=== PATIENT | female | born 1955 | race Caucasian/White ===

== ENCOUNTER 2019-10-19 19:52 | Inpatient (IN) ==
[2019-10-19 21:12] LABS: Appearance Urine Cloudy (Clear); Bacteria Urine Automated 4+ (Negative); Bilirubin Urine Negative (Negative); Blood Urine Negative (Negative); Color Urine Yellow; Glucose Urine UA Negative (Negative); Ketones Urine Negative (Negative); Leukocyte Esterase Urine Trace (Negative); Nitrite Urine Positive (Negative); Protein Urine Negative (Negative); RBC Urine Automated 0-4 /hpf (0-4); Specific Gravity Urine 1.012 (1.000-1.030); Urobilinogen Urine Negative (Negative); pH Urine 5.5 (4.5-7.5)
[2019-10-19 21:30] LABS: Basophils # (auto) 0.11 K/uL (0-0.2); Basophils % (auto) 2.5 %; Eosinophils # (auto) 0.24 K/uL (0-0.5); Eosinophils % (auto) 5.4 %; Hematocrit (blood only) 38.9 % (37-47); Hemoglobin 13.7 g/dL (12.0-16.0); Immature Granulocytes # (auto) 0.02 K/uL (0.00-0.02); Immature Granulocytes % (auto) 0.5 %; Lymphocytes # (auto) 1.45 K/uL (1.2-3.4); Lymphocytes % (auto) 32.7 %; Mean Corpuscular Hemoglobin 38.1 pg (25-34); Mean Corpuscular Hgb Conc 35.2 g/dL (32-36); Mean Corpuscular Volume 108.1 fL (80-100); Mean Platelet Volume 9.6 fL (7.4-10.4); Monocytes % (auto) 6.8 %; Neutrophils # (auto) 2.31 K/uL (1.4-6.5); Neutrophils % (auto) 52.1 %; Platelet Count 250 K/uL (130-400); RDW Coefficient of Variation 13.6 % (11.5-14.5); RDW Standard Deviation 54.2 fL (36.4-46.3); White Blood Count 4.43 K/uL (4.8-10.8)
[2019-10-19 21:37] LABS: Amphetamines+Metham, Urine Neg (Neg); Barbiturates, Urine Neg (Neg); Benzodiazepine, Urine Neg (Neg); Cocaine, Urine Neg (Neg); MDMA (Ecstacy), Urine Neg (Neg); Methadone, Urine Neg (Neg); Opiate, Urine Neg (Neg); Phencyclidine, Urine Neg (Neg)
[2019-10-19 21:48] LABS: Albumin Level 4.1 gm/dl (3.4-5.0); BUN Creatinine Ratio 15.2 (10-20); Calcium 9.3 mg/dl (8.5-10.1); Creatinine Clr Calc Pharmacy 79.5 ml/min; Est GFR (African American) 113.4; Est GFR (Non-African American) 97.8; Potassium 3.9 mmol/L (3.5-5.1)
[2019-10-19 21:51] LABS: Acetaminophen < 2 ug/ml (10-30); Salicylate 2.8 mg/dl (2.8-20)
[2019-10-19 21:58] LABS: Bilirubin,Total 0.4 mg/dl (0.2-1); Globulin 3.9 gm/dl (2.5-4.0); Thyroid Stimulating Hormone 10.2 uIu/ml (0.300-4.500)
[2019-10-19 22:45] LABS: T4 Free Thyroxine 0.86 ng/dl (0.8-1.6)
--- NOTE | 2019-10-20 00:39 | Emergency Department Note ---
Entered by Carloz Corbin acting as a scribe for History of Present Illness General Chief Complaint: Mental Health Evaluation Stated Complaint: MHID Time Seen by Provider: 10/19/19 20:53 Source: patient History of Present Illness Provider complaint: feels depressed Onset (ago): month(s) 3 Duration: getting worse Context: + recent alcohol abuse Associated psychiatric symptoms: + depression Associated symptoms: + denies other symptoms The patient is a 63 year old female who presents to the Emergency Room with complaints of worsening depression over the past 2-3 months. Per the psych case making machine operator, the patient is here on a 302 warrant that was initiated by the patient's family after she texted her son in law asking if he still had a pistol. The patient admits to doing so but states she does not want to kill herself nor would she know how to use the gun. The psych case making machine operator notes the patient stated that she was looking for an easy way out, however when asked about it the patient states she just said stuff that she should not have said but she is adamant about not wanting to kill herself. The patient does admit to drinking 5 shots of liquor this evening. The patient reports that she is depressed "about life" and per the psych case making machine operator the patient had previously mentioned her actions are due to the of her son which occurred in 2006. She adds that she is financially stable and her family life is going well. The patient has no history of mental illness or self harm nor is she on any psych medications. The psych case making machine operator states that the patient's does have guns in their home but they are locked. Home Medications Home Medications Medication Instructions Recorded Confirmed Type No Known Home Medications 10/19/19 10/19/19 History Allergies Allergy/AdvReac Type Severity Reaction Status Date / Time [id number] Allergy Unknown Nasal Uncoded 10/19/19 20:35 Discharge Past Med/Surg History Medical History No pertinent past medical history Family History Other No pertinent family history in first degree relatives Social History Preferred Language: Sinhala Feels Safe at Home: Yes Smoking Status: Current every day smoker Review of Systems See HPI for pertinent positives & negatives. and A total of 10 systems reviewed and were otherwise negative Physical Exam Vital Signs Vital Signs - 24 hr 10/19/19 19:44 10/19/19 22:04 10/19/19 23:15 Temperature 36.6 C 36 C L Temperature Source Oral Oral Pulse Rate 138 H Pulse Rate [Left Finger] 121 H 100 H Respiratory Rate 20 20 20 Respiratory Effort / Characteristics Normal for Patient Normal for Patient Non-Labored Spontaneous Respiratory Depth Normal Respiratory Pattern Regular Blood Pressure 172/125 H Blood Pressure [Left Arm] 180/135 H 138/91 Blood Pressure Mean 140 Blood Pressure Mean [Left Arm] 150 106 Blood Pressure Position Sitting Blood Pressure Position [Left Arm] Sitting Pulse Oximetry 98 95 97 Oxygen Delivery Method Room Air Room Air Room Air Constitutional: Vital signs reviewed. Smell of alcohol on breath. Eyes: Pupils are equal round reactive to light. Conjunctiva are noninjected. ENT: Pharynx is clear without erythema or exudate. Mucous membranes are moist. Neck supple without meningeal signs. Respiratory: Clear to auscultation bilaterally. Breath sounds are equal bilaterally. Cardiovascular: Regular rate and rhythm. No rubs or gallops. GI: Soft, nondistended and nontender. Bowel sounds are present. Musculoskeletal: No peripheral edema. No lower extremity tenderness. Integumentary: No cyanosis. Neurological: The patient is awake and alert. No focal deficits. Psychiatric: Unable to assess affect as the patient appears intoxicated. Course 2057: Past medical records reviewed. The patient was evaluated in room A06, and a complete history and physical examination were performed. 0030: The patient has been signed out to Dr. Ramirez at change of shift. See her note for more information. Administered Medications Medical Decision Making Differential Diagnosis Differential Diagnosis includes: Alcohol intoxication, mood disorder, SI, alcohol abuse, and drug abuse, amongst others. Medical Records Attestation: I reviewed the patient's medical records. I did perform a limited focused review of portions of the patient's old chart on the electronic medical record. The patient has had no recent pertinent visits to this hospital. Home Medications Current Medication List: was personally reviewed by me Laboratory Data Attestation: I reviewed the patient's lab results. Result diagrams: 10/19/19 21:13 10/19/19 21:13 Lab Results 0110/19/19 10/19/19 Range/Units 20:00 20:00 21:13 WBC 4.43 L (4.8-10.8) K/uL RBC 3.60 L (4.2-5.4) M/uL Hgb 13.7 (12.0-16.0) g/dL Hct 38.9 (37-47) % MCV 108.1 H (80-100) fL MCH 38.1 H (25-34) pg MCHC 35.2 (32-36) g/dL RDW Std Deviation 54.2 H (36.4-46.3) fL RDW Coeff of Nicole 13.6 (11.5-14.5) % Plt Count 250 (130-400) K/uL MPV 9.6 (7.4-10.4) fL Immature Gran % (Auto) 0.5 % Neut % (Auto) 52.1 % Lymph % (Auto) 32.7 % [place] % (Auto) 6.8 % Eos % (Auto) 5.4 % Baso % (Auto) 2.5 % Immature Gran # (Auto) 0.02 (0.00-0.02) K/uL Neut # (Auto) 2.31 (1.4-6.5) K/uL Lymph # (Auto) 1.45 (1.2-3.4) K/uL [place] # (Auto) 0.30 (0.11-0.59) K/uL Eos # (Auto) 0.24 (0-0.5) K/uL Baso # (Auto) 0.11 (0-0.2) K/uL Sodium (136-145) mmol/L Potassium (3.5-5.1) mmol/L Chloride (98-107) mmol/L Carbon Dioxide (21-32) mmol/L Anion Gap (3-11) BUN (7-18) mg/dl Creatinine (0.6-1.2) mg/dl Est Cr Clr Drug Dosing ml/min Est GFR ( Amer) Est GFR (Non-Af Amer) BUN/Creatinine Ratio (10-20) Glucose (70-99) mg/dl Calcium (8.5-10.1) mg/dl Total Bilirubin (0.2-1) mg/dl AST (15-37) U/L ALT (12-78) U/L Alkaline Phosphatase (45-117) U/L Total Protein (6.4-8.2) gm/dl Albumin (3.4-5.0) gm/dl Globulin (2.5-4.0) gm/dl Albumin/Globulin Ratio (0.9-2) TSH (0.300-4.500) uIu/ml Free T4 (0.8-1.6) ng/dl Urine Color Yellow Urine Appearance Cloudy A (Clear) Urine pH 5.5 (4.5-7.5) Ur Specific Busy 1.012 (1.000-1.030) Urine Protein Negative (Negative) Urine Glucose (UA) Negative (Negative) Urine Ketones Negative (Negative) Urine Blood Negative (Negative) Urine Nitrite Positive A (Negative) Urine Bilirubin Negative (Negative) Urine Urobilinogen Negative (Negative) Ur Leukocyte Esterase Trace H (Negative) Urine WBC (Auto) 1-5 (0-5) /hpf Urine RBC (Auto) 0-4 (0-4) /hpf U Hyaline Cast (Auto) 1-5 (0-5) /lpf U Epithel Cells (Auto) 10-20 H (0-5) /lpf Urine Bacteria (Auto) 4+ H (Negative) Urine Yeast Not Reportable Salicylates (2.8-20) mg/dl Urine Opiates Screen Neg (Neg) Ur Methadone, Qual Neg (Neg) Acetaminophen (10-30) ug/ml Urine Barbiturates Neg (Neg) Ur Phencyclidine (PCP) Neg (Neg) U Amphetamin/Meth Scrn Neg (Neg) MDMA (Ecstasy) Screen Neg (Neg) U Benzodiazepines Scrn Neg (Neg) Ur Cocaine Metabolite Neg (Neg) U Marijuana (THC) Screen Neg (Neg) Ethyl Alcohol mg/dL (0-3) mg/dl 10/19/19 10/19/19 10/19/19 Range/Units 21:13 21:13 21:13 WBC (4.8-10.8) K/uL RBC (4.2-5.4) M/uL Hgb (12.0-16.0) g/dL Hct (37-47) % MCV (80-100) fL MCH (25-34) pg MCHC (32-36) g/dL RDW Std Deviation (36.4-46.3) fL RDW Coeff of Nicole (11.5-14.5) % Plt Count (130-400) K/uL MPV (7.4-10.4) fL Immature Gran % (Auto) % Neut % (Auto) % Lymph % (Auto) % [place] % (Auto) % Eos % (Auto) % Baso % (Auto) % Immature Gran # (Auto) (0.00-0.02) K/uL Neut # (Auto) (1.4-6.5) K/uL Lymph # (Auto) (1.2-3.4) K/uL [place] # (Auto) (0.11-0.59) K/uL Eos # (Auto) (0-0.5) K/uL Baso # (Auto) (0-0.2) K/uL Sodium 137 (136-145) mmol/L Potassium 3.9 (3.5-5.1) mmol/L Chloride 103 (98-107) mmol/L Carbon Dioxide 25 (21-32) mmol/L Anion Gap 9.0 (3-11) BUN 9 (7-18) mg/dl Creatinine 0.61 (0.6-1.2) mg/dl Est Cr Clr Drug Dosing 79.5 ml/min Est GFR ( Amer) 113.4 Est GFR (Non-Af Amer) 97.8 BUN/Creatinine Ratio 15.2 (10-20) Glucose 78 (70-99) mg/dl Calcium 9.3 (8.5-10.1) mg/dl Total Bilirubin 0.4 (0.2-1) mg/dl AST 195 H (15-37) U/L ALT 112 H (12-78) U/L Alkaline Phosphatase 105 (45-117) U/L Total Protein 8.0 (6.4-8.2) gm/dl Albumin 4.1 (3.4-5.0) gm/dl Globulin 3.9 (2.5-4.0) gm/dl Albumin/Globulin Ratio 1.0 (0.9-2) TSH 10.200 H (0.300-4.500) uIu/ml Free T4 0.86 (0.8-1.6) ng/dl Urine Color Urine Appearance (Clear) Urine pH (4.5-7.5) Ur Specific Busy (1.000-1.030) Urine Protein (Negative) Urine Glucose (UA) (Negative) Urine Ketones (Negative) Urine Blood (Negative) Urine Nitrite (Negative) Urine Bilirubin (Negative) Urine Urobilinogen (Negative) Ur Leukocyte Esterase (Negative) Urine WBC (Auto) (0-5) /hpf Urine RBC (Auto) (0-4) /hpf U Hyaline Cast (Auto) (0-5) /lpf U Epithel Cells (Auto) (0-5) /lpf Urine Bacteria (Auto) (Negative) Urine Yeast Salicylates 2.8 (2.8-20) mg/dl Urine Opiates Screen (Neg) Ur Methadone, Qual (Neg) Acetaminophen < 2 L (10-30) ug/ml Urine Barbiturates (Neg) Ur Phencyclidine (PCP) (Neg) U Amphetamin/Meth Scrn (Neg) MDMA (Ecstasy) Screen (Neg) U Benzodiazepines Scrn (Neg) Ur Cocaine Metabolite (Neg) U Marijuana (THC) Screen (Neg) Ethyl Alcohol mg/dL 306.6 H (0-3) mg/dl Blood Pressure Blood Pressure Findings: Elevated blood pressure Blood Pressure Disposition: Referred to patients primary care provider MDM Narrative I did evaluate the patient as noted above. The patient was brought in for psychiatric evaluation under a 302 petition. The patient wrote text to her children asking about a gun and making suicidal statements. Currently she jailyn es feeling suicidal. She said she sent the text because she was mad. She states she has no prior history of depression or hospitalization for mental illness. I did order a urine analysis. I did order and review the patient's blood work as noted in the electronic medical record. The patient's serum alcohol is over 300. She has mild leukopenia otherwise her labs are unremarkable. TSH was elevated but free T4 is within normal limits. Observation note: Indication: Call intoxication and mental health evaluation Patient, with no significant family History, was first seen at 3 hrs and the observation time began at 2052 hrs and was necessary in order to await sobriety for mental health evaluation. The patient was signed out to Dr. Ramirez at 12:30 AM. Impression & Plan Alcoholic intoxication, Mood disorder, Suicidal ideation Discharge Plan Visit Data Chief Complaint: Mental Health Evaluation Stated Complaint: MHID ED Provider: Madhu Ledbetter Discharge Problem: Alcoholic intoxication, Mood disorder, Suicidal ideation Forms Stand Alone Forms: My [facility], Suicide Prevention Resources Prescriptions Prescriptions: No Action No Known Home Medications RF: 0 Referrals Referrals: Humble Sellers MD [Primary Care Provider] - Discharge Problem: Alcoholic intoxication Qualifiers: Complication of substance-induced condition: uncomplicated Qualified Code(s): F10.920 - Alcohol use, unspecified with intoxication, uncomplicated The scribe's documentation has been prepared under my direction and personally reviewed by me in its entirety. I confirm that the note above accurately reflects all work, treatment, procedures, and medical decision making performed by me.
--- NOTE | 2019-10-20 05:58 | Emergency Department Note ---
ED Visit Note Patient signed out to me at change of shift by Dr. Ledbetter. Other than alcohol intoxication she was felt to be medically clear. Patient here with alcohol intoxication and will not be sober until 7 AM for psychiatric evaluation. Patient also made suicidal statements witnessed by family who wrote a 302 petitioning statement. No issues or concerns overnight on the patient. Pt signed out to Dr. Carballo at change of shift. . : Alcoholic intoxication Qualifiers: Complication of substance-induced condition: uncomplicated Qualified Code(s): F10.920 - Alcohol use, unspecified with intoxication, uncomplicated
[2019-10-20] MEDS ORDERED: LORazepam 1 MG TAB SL STA (08:11)
[2019-10-20] MEDS ORDERED: FOLIC ACID 1 MG in SYRINGE 9.8 ML IV STA (08:46)
[2019-10-20] MEDS ORDERED: MULTIVITAMIN TAB PO STA (08:46)
[2019-10-20] MEDS ORDERED: THIAMINE HCL 100 MG in SYRINGE 9 ML IV STA (08:46)
[2019-10-20] MEDS ORDERED: LORazepam 1 MG/2 ML VIAL IV STA (09:28)
--- NOTE | 2019-10-20 09:59 | Emergency Department Note ---
Entered by Carolyn Ricardo acting as a scribe for John Carballo DO ED Visit Note [id number]: I discussed the patient's case with Dr. Izquierdo - [facility] [place]. He will evaluate the patient for further management. Patient is a 63-year-old female that was signed out to me who made suicidal statements requesting gun last night while she was intoxicated. She is currently sober and actively withdrawing. She notes that she drinks about a pint of scotch a day. There is a 302 petition on the chart. IV was placed. Patient was given 2 separate dose of IV Ativan. She was given IV folic acid thiamine and multivitamin. She was updated bedside. She was discussed with hospitalist for observation secondary to alcohol withdrawal with suicidal ideati ons and will need to be evaluated by psychiatry. : Alcoholic intoxication Qualifiers: Complication of substance-induced condition: uncomplicated Qualified Code(s): F10.920 - Alcohol use, unspecified with intoxication, uncomplicated The scribe's documentation has been prepared under my direction and personally reviewed by me in its entirety. I confirm that the note above accurately reflects all work, treatment, procedures, and medical decision making performed by me.
--- NOTE | 2019-10-20 10:31 | History & Physical Report ---
Date of Service October 20, 2019 Assessment & Plan (1) Alcohol withdrawal: 63-year-old female history of alcohol dependence, tobacco dependence, depression brought to the hospital with 302 for suicide risk. Patient drinks approximately 1 pint of scotch per day for the past 12 years. She has quit couple days in the past. She state that she experienced W/D symptoms significant for tremors/anxiety, but denies seizures or DT's. In the ED last night, with a EtOH level of 306. Her last drink was around dinner time last night. Will consult psych regarding depression/suicide ideation. Patient is alert, oriented and appropriate. Only symptoms at this time are tremors/anxiety. Etoh W/D - Admit to medsurg/telemetry - Labs concerning for chronic Etoh use AST>ALT, MCV elevated - Folate and Thiamine given in ED - Recieved 2 mg Ativan in the ED - CIWA protocol, 1 mg Ativan PRN - If CIWA consistently >8, will consider adding Librium - Will discuss cessation education prior to DC Depression/Suicide ideation - Psych consult - 1:1, suicide precautions Tobacco dependence, 5-10 cigs per day - Provide cessation education prior to DC, but not right now - Low dose nicotine patch Wheezing bilaterally on exam - Denies dx of obstructive disease, no home use of inhalers - Holding off on breathing tx in the setting of tachycardia, tremors - Follow pulse Ox, provide supplemental O2. Would consider nebs if hypoxic Dvt ppx--ambulate with supervision Code status--will address with patient on rounds FEN--regular diet (2) Mood disorder: (3) Suicidal ideation: History of Present Illness Primary Care Provider: Humble Sellers MD 63-year-old female history of depression, alcohol dependence, tobacco dependence brought to the hospital with 302 for suicide risk. Patient describes a history of grief/depression following loss of her son. She is been drinking daily for approximately the past 12 to 14 years to help cope with the loss. Describes drinking approximately a pint of scotch per day. Last night the patient states that she had texted her son-in-law asking for a gun to end it all. She lives at home with her . She has not sought treatment for depression and is never been on any medications. He says that she has been in a particular dark place for the past 2 to 3 months. While she has moments of suicide ideation, she states that she can never go through with it. She smokes approximately 5 to 10 cigarettes/day. Allergies Allergy/AdvReac Type Severity Reaction Status Date / Time [id number] Allergy Unknown Nasal Uncoded 10/19/19 20:35 Discharge Home Medications Home Medications Medication Instructions Recorded Confirmed Type No Known Home Medications 10/19/19 10/19/19 History Past Med/Surg History Medical History No pertinent past medical history Family History Other No pertinent family history in first degree relatives Social History Preferred Language: Greenlandic Communication Ability: Effective Dry House Tender Required: No Beliefs That Will Affect Care: None Current Living Situation: Spouse Other Information That Helps Us Care for You: No Feels Safe at Home: Yes Safety Concerns: Feels Safe At This Time Smoking Status: Current every day smoker Tobacco Type: cigarettes ; Cigarettes Per Day: 6 ; Hx Alcohol Use: Yes Alcohol type: hard liquor Hx Substance Use: No Review of Systems Constitutional: + chills; no fever and no sweats Ear, Nose, Mouth, Throat: no nasal congestion, no sore throat and no dysphagia Respiratory: + wheezing; no cough, no dyspnea and no hemoptysis Cardiovascular: + palpitations; no chest pain, no orthopnea and no edema Gastrointestinal: no abdominal pain, no nausea and no vomiting Neurologic: no abnormal speech, no confusion and no memory loss Psychiatric: + depression, + suicidal ideation and + anxiety Physical Exam Constitutional: WD/WN, vitals as above Eyes: PERRL, conjunctivae normal, anicteric sclerae ENMT: external ear and nose normal, oropharynx normal Neck: trachea midline, no thyromegaly Respiratory: Auscultation: + wheezes (bilateral ) Cardiovascular: RRR, no murmur, no edema Gastrointestinal (Abdomen): normal bowel sounds, soft, nontender, no hepatosplenomegaly Musculoskeletal: no cyanosis or clubbing, extremities motor strength 5/5 Skin: no rashes, warm and dry Neurologic: PERRL, EOMI, accommodation nl, no face palsy, no dysarthria Psychiatric: A+Ox3, euthymic affect Affect: + depressed affect and + a nxious affect Results & Data Vital Signs (Past 12 Hours) Vital Signs Temp Pulse Resp BP Pulse Ox 10/20/19 09:51 36.7 C 107 H 20 167/118 H 94 10/20/19 08:54 36.9 C 106 H 16 156/109 H 18 L 10/20/19 07:07 94 H 16 119/78 96 10/20/19 05:19 112 H 16 117/78 96 10/20/19 03:12 111 H 18 117/87 99 10/20/19 01:10 118 H 20 120/83 95 10/19/19 23:15 100 H 20 138/91 97 Code Status & VTE Plan VTE Prophylaxis Plan VTE Prophylaxis will be ordered: Yes Supervising Physician Co-Signing Physician Notes I personally examined the patient and verified all dumont points of history and exam, discussed case, and agree with decision making with Dr Reyes. actually feels less shaky than she did this AM. still shaky, still racing heart but less than before. awaiting psych input at the time i see her. vitals noted nad heent nc at mmm breathing unlabored no accessory muscles good effort skin no rashes no pallor or icterus. sinus tachy ~110, mmild tremulousness, no focal neuro deficits. mentation intact. depression, question of suicidality - follow closely psych input pending EtOH abuse/withdrawal - fortunately right now withdrawal fairly midl. concerning that it started while she was still quite intoxicated, but the fact that she's feeling better and looking fairly mild - hopefully this will pass without serious consequences for her. continue symptom triggered therappy and supportive care. "fallout" from EtOH abuse apperaing to be mild EtOH hepatitis and macrocytosis mild EtOH hepatitis - transaminases up, bili normal. suspect sobriety will allow liver to heal macrocytosis - likely EtOH abuse related, but wtih MCV as large as it is - check B12 to rule out concomitant deficiency Resident Activity Tracking Resident Involvement: Resident Care Provided Care Provided: Adult Hospital Medicine
[2019-10-20] MEDS ORDERED: LORazepam 1 MG/2 ML VIAL IV PRN ×2 (11:28→23:41)
[2019-10-20] MEDS ORDERED: SODIUM CHLORIDE 0.9% 1000ML 1,000 ML IV SCH (11:28)
[2019-10-20] MEDS: NICOTINE 7 MG/24 HR TDSY TD SCH (11:52)
[2019-10-20] MEDS: ENOXAPARIN INJ 40 MG/0.4 ML SYR SQ SCH (11:53)
--- NOTE | 2019-10-20 16:04 | Communication Note ---
Date of Service: October 20, 2019 63-year-old female who presented to the ED with complaints of worsening depressive symptoms. Documentation suggests the patient was brought to the ED on a 302 warrant after texting her son-in-law to ask if he had a gun; though patient denied suicidal ideation, plan, or intent on evaluation by ED psychiatric trimming caser. It is reported that patient has a history of alcohol dependence and presented to the ED with a BAL of 306. Pt was admitted medically for alcohol withdrawal and psychiatric consultation was requested for "depression, suicide risk, and 302." Attempts to evaluate patient were initiated by psychiatric nurse liaison and were unsuccessful due to level of present sedation (patient had reportedly been awake most of the night in the ED). As patient is not able to participate in productive interview at this time, we will plan to follow her status and evaluate at a more appropriate time. In the interim, patient is on a 302 warrant, indicating that she is not permitted to leave AMA until she is evaluated psychiatrically. Please reach out to our service with any questions or updates. Will plan attempts to evaluate patient when she is better able to tolerate evalaution. Dr. Viviana Rushing was directly involved in review and discussion of the patient's case and participated in medical decision making regarding treatment recommendations.
--- NOTE | 2019-10-20 17:34 | Billing Data ---
Date of Service October 20, 2019 Coding Level of Care Code 62996 Initial Inpt Care Lvl 3
[2019-10-21] MEDS: NICOTINE 7 MG/24 HR TDSY TD SCH (08:02)
[2019-10-21 08:05] LABS: Basophils # (auto) 0.03 K/uL (0-0.2); Basophils % (auto) 0.8 %; Eosinophils # (auto) 0.14 K/uL (0-0.5); Eosinophils % (auto) 3.7 %; Hematocrit (blood only) 39.7 % (37-47); Hemoglobin 13.9 g/dL (12.0-16.0); Immature Granulocytes # (auto) 0.01 K/uL (0.00-0.02); Immature Granulocytes % (auto) 0.3 %; Lymphocytes % (auto) 26.7 %; Mean Corpuscular Hemoglobin 37.7 pg (25-34); Mean Corpuscular Volume 107.6 fL (80-100); Mean Platelet Volume 10.1 fL (7.4-10.4); Monocytes # (auto) 0.63 K/uL (0.11-0.59); Monocytes % (auto) 16.8 %; Neutrophils # (auto) 1.93 K/uL (1.4-6.5); Neutrophils % (auto) 51.7 %; Platelet Count 192 K/uL (130-400); RDW Coefficient of Variation 13.3 % (11.5-14.5); Red Blood Count 3.69 M/uL (4.2-5.4); White Blood Count 3.74 K/uL (4.8-10.8)
[2019-10-21 08:42] LABS: Albumin Level 3.8 gm/dl (3.4-5.0); Bilirubin,Total 0.9 mg/dl (0.2-1); Calcium 9.5 mg/dl (8.5-10.1); Est GFR (African American) 112.2; Est GFR (Non-African American) 96.8; Globulin 3.8 gm/dl (2.5-4.0); Potassium 3.2 mmol/L (3.5-5.1); Total Protein 7.6 gm/dl (6.4-8.2)
[2019-10-21 08:50] LABS: Folate (Folic Acid) 8.44 ng/ml (>5.38)
[2019-10-21] MEDS: THIAMINE HCL 100 MG TAB PO SCH (08:56)
[2019-10-21] MEDS: FOLIC ACID 1 MG TAB PO SCH (08:56)
[2019-10-21] MEDS: ENOXAPARIN INJ 40 MG/0.4 ML SYR SQ SCH (12:12)
--- NOTE | 2019-10-21 13:26 | Psychiatric Consultation ---
Date of Consultation October 21, 2019 Impression / Recommendations Impression 63-year-old female who presented to the ED on a 302 mental health warrant, but was admitted medically on 10/20/2019 for concerns of likely alcohol withdrawal. Petitioning statement was completed by patient's daughter, who reported the patient had texted the patient's son-in-law inquiring if he had a gun, and verbalizing suicidal statements. The petitioning statement does indicate that the patient made remarks about wanting to kill herself with a gun. Collateral information was obtained from patient's and daughter, both of whom report significant concerns related to increased depressive symptoms and continued suicidal ideation. They admit that suicidal statements have been ongoing for the past 6 months, but have increased in frequency over the past month. While patient's alcohol use may be contributing to these statements being verbalized, there is a clear history that these statements have been occurring consistently for a considerable period of time. Other changes in behavior such as withdrawing, changes in focus/concentration, and limited attention to ADLs and other needs around the business/home have been concerning to family. Unfortunately, patient is either demonstrating limited insight as to the presence of these symptoms or is minimizing the concern. Patient denies any issues related to depression or other mental health concerns. She also denies the presence of suicidal thoughts, and attempts to rationalize the statements reported stating she was just wanting to use the gun for target practice to protect herself. Patient is also demonstrating little insight as to the impact her chronic alcohol use may be having on her mood. It remains unclear if family has had these conversations with the patient herself, nonetheless is verbalizing significant concerns about the patient being discharged home without adequate psychiatric intervention. We will continue to engage the family in these conversations, also encouraging that they discussed their concerns with the patient directly to allow her to understand the impact her alcohol use has had on the family as a whole. At time of this evaluation, it seems most reasonable to encourage inpatient psychiatric treatment at the time of medical clearance. We will continue to engage the patient and family in conversations regarding psychiatric and substance abuse treatment options. Patient is on a 302 warrant, meaning she should not be permitted to leave the hospital AMA. We will continue to process these events with patient and family, and make official discharge recommendations prior to time of medical clearance. Please reach out to our service with any additional questions or updates. We appreciate the opportunity to participate in the care of this patient. Dr. Viviana Rushing was directly involved in review and discussion of the patient's case and participated in medical decision making regarding treatment recommendations. Risk Factors Assessment Male: No : Yes Do You Have Access To A Gun?: No Health Problems: No Mental Health Diagnoses: No Substance Use Disorders: Yes Previous Attempt: No Previous Psychiatric Hospitalization: No Hopelessness: No Smoker: Yes Protective Factors Assessment Yazdanism Beliefs: Yes : Yes Responsible for Young Children: No Employed: Yes Stable Relationships: Yes Supportive Family: Yes Psych History Identifying Data 63-year-old female admitted medically for alcohol withdrawal on 10/20/2019 after presenting to the ED on a 302 warrant. Patient was brought to the ED by police after it was reported that she sent text messages to her son-in-law asking if he still had a pistol, and stating that she was looking "for an easy way out." Psychiatric consultation is requested to evaluate the patient for "depression, suicide risk, and 302." Chief Complaint "Well...according to what I was told...I guess people had concerns I was going to hurt myself." History of Present Illness Catherine Hwang (Peg) is a 63-year-old female admitted medically for concern for alcohol withdrawal, after presenting to the ED on a 302 mental health warrant. It is reported that police arrived at patient's home after the report was made that the patient had been texting her son-in-law asking if he had a gun, and verbalizing suicidal statements. 302 petitioning statement was completed by the patient's daughter and reads: "Received a text message asking if we still had a pistol. We asked why and she said for herself and that she was looking for an easy way out. She also verbally tole me that she's not happy and she wanted to kill herself and has been unhappy since the of her son in 2006." The patient was admitted with a blood alcohol level of 306.6 and is being monitored for signs and symptoms of withdrawal. Psychiatric consultation was requested to evaluate the patient for "depression, suicide risk, and 302." Patient's case was reviewed during morning report with psychiatric nurse liaison's and [facility] psychiatrist. Initial evaluation from psychiatric liaison was reviewed prior to this provider's interaction with the patient. Patient was cooperative with psychiatric evaluation. She provided verbal consent to allow Tawnya Martin PA-C to observe today's encounter. When asked to explain the events leading to her admission, the patient states "Well...according to what I was told...I guess people had concerns I was going to hurt myself." Patient begins our conversation by explaining her side of the text message with her son-in-law. The patient states "I did ask for the pistol because I said I needed to take care of something. When he asked what I needed to take care of, I said me." Patient then informs this provider that she had asked about the gun, hoping that her son-in-law would do some target shooting with her. She continues to verbalize desire to have a gun for protection, stating "I think it is just all the stuff he see on the news, it is scary. 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 Patient states "after I sent the text messages, I just went about my business. Next thing I know, there were lights flashing outside of my house, and the police showed up with my , daughter, and son-in-law." When asked about the presence of suicidal ideation, the patient states "sure, I have random thoughts from time to time, just like anyone else would." Patient states that the frequency of the thoughts are "I do not know, 1-2 times a year would be a lot." The patient denies history of these thoughts occurring with a specific plan, and denies previous suicide attempts. She states she has never worked with any outpatient psychiatric providers, and has never required inpatient psychiatric treatment in the past. The patient, herself, is denying signs and symptoms of depression. She states that sleep and appetite are unchanged for her, and the concentration remains decent "I am still sharp, I always have been." She denies feelings of hopelessness, and says that her overall mood is "I am generally a pretty happy person, I do not really get down too often." Patient does admit to experiencing depressive symptoms "when my daughter got , and when we found my son unresponsive inside her hous e." She admits that her son 13 years ago, having struggled with alcohol abuse. The patient states that he overtook verb-zxn-qseirab cough medications due to "his allergies were acting up, and he would forget he took the medication already." She does admit that she had a significant increase in her alcohol consumption after that time. The patient states that she drinks a pint of scotch daily, and has been doing so rather regularly for the past 13 years. She states "I guess that was my sedative." Motivational interviewing was used to determine patient's perception of if her alcohol use has been problematic. Patient denies concerns related to her alcohol use, saying "it never caused any problems for anyone, at least no one has told me that." Patient does not feel that her alcohol use is to the point that it requires inpatient drug and alcohol rehabilitation, but states "I probably would not think it was a problem unless it started causing issues in my family." Tracy eason to the patient, her family has not approached her about their concerns related to mood or her alcohol use. Patient does verbalize willingness for outpatient therapy, and even medication evaluation if indicated. Patient was informed there is also possibility that inpatient psychiatric hospitalization may be recommended, which she feels is not necessary stating "I would not want to do that, I would not want to go." She also denies willingness for inpatient drug and alcohol rehabilitation. Pt denies SI, HI, SIB, A/V hallucinations, paranoia, marcos/hypomania, other symptoms more suggestive of a bipolar presentation, OCD, PTSD, eating disorder, and other specific psychiatric symptoms. Collateral information was gathered from the patient's and daughter, who both express significant concern about changes in the patient's mood and her overall alcohol consumption. See psychiatric liaison notes for additional information. It appears as though the patient has been frequently making suicidal statements over the past 6 months. Although the statements are generally made while the patient is under the influence of alcohol, the statements are consistent and intensifying in frequency and severity over the past month. They also state that the patient has been alluding to suicidal ideation on social media as well. 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 described the patient as "a recluse." Family did verbalize concern that the patient "has become manipulative to the point at which she will not admit to having any issues with drinking." He did verbalize concern indicating they don't feel the patient can be discharge home safely without "some sort of help." Past Psychiatric History Previous Psych History: Denies previous psychiatric history. Patient does admit to episodes of depression "when my daughter got and when we found my son unresponsive in her house, but that is normal I would imagine." She denies history of outpatient psychiatric treatment, no previous psychiatric medication trials, denies suicide attempts and has no previous psychiatric hospitalizations. Patient states that her son-in-law has guns in his home; however, the patient does not have access to any weapons within her own house. Do You Have Access To A Gun?: No Allergies Allergy/AdvReac Type Severity Reaction Status Date / Time [id number] Allergy Unknown Nasal Uncoded 10/19/19 20:35 Discharge Home Medications Home Medications Medication Instructions Recorded Confirmed Type No Known Home Medications 10/19/19 10/19/19 History Family History Patient reports history of anxiety, panic attacks, and depression in both her older and younger sisters and their children. Patient admits that her son struggled with alcohol abuse, but does not feel as though he had any mental heal th issues. Son is now , after what patient's daughter reports to be an attempt to get high on hclz-ged-jmllecs cough medication. Substance Abuse History Patient admits to smoking 5 to 10 cigarettes a day for the past 40 years. She admits to consuming 1 pint of scotch daily since her son 13 years ago. She admits that she may be utilizing the alcohol to cope with this loss. When asked about history of sobriety, the patient states "maybe 1 week here or there." She denies known history of alcohol withdrawal. She denies formal outpatient or inpatient drug and alcohol treatment. 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[place]) Marital Status: (to of 39 years) Number Of Children: 2 - adult daughter; son 13 years ago Beliefs That Will Affect Care: Yazdanism (Oriental Orthodox) History of Legal Problems: Denied Psychological Trauma History Comment: of son 13 years ago due to overdose Patient History Medical History No pertinent past medical history Family History Other No pertinent family history in first degree relatives Social History Preferred Language: Greek Communication Ability: Effective Vocational Aide Required: No Beliefs That Will Affect Care: None Current Living Situation: Spouse Other Information That Helps Us Care for You: No Feels Safe at Home: Yes Safety Concerns: Feels Safe At This Time Smoking Status: Current every day smoker Tobacco Type: cigarettes ; Cigarettes Per Day: 6 ; Hx Alcohol Use: Yes Alcohol type: hard liquor Hx Substance Use: No Physical Exam Psychiatric: Orientation: alert, oriented x 3 and cooperative Apperance: appropriately dressed, appropriately groomed and appeared stated age Thin, petite appearing female, seated in bed in no acute distress. Patient is appropriately dressed for situation, wearing paper scrubs. She has long sheikh hair, neatly styled in a ponytail. Level of hygiene and grooming appear appropriate. Eye Contact: good eye contact Motor Behavior: no abnormal motor movements (Observed while sitting upright in bed) Speech: normal rate/rhythm/volume of speech Affect: + tearful affect (Specifically when discussing the of her son) and + blunted affect (Subdued) Mood: no depressed mood and no anxious mood "I am generally pretty upbeat" Thought Process: goal directed thought process and clear/coherent thought process Thought Content: reality based without delusions; no hopelessness Suicidal Thoughts: denies suicidal thoughts, denies suicidal plan and denies suicidal i ntent Providing an alternative reasoning as to why she was requesting a gun from her son-in-law Homicidal Thoughts: denies homicidal thoughts Hallucinations: no auditory hallucinations and no visual hallucinations Cognition: attention grossly intact and language grossly intact Insight: + poor insight Judgement: + poor judgement Vital Signs (Past 24 Hours): Last Vital Signs Temp 36.7 C 10/21/19 11:55 Pulse 103 H 10/21/19 11:55 Resp 18 10/21/19 11:55 BP 159/107 H 10/21/19 11:55 Pulse Ox 97 10/21/19 11:55 Review of Systems Constitutional: denied Cardiovascular: denied Respiratory: denied Gastrointestinal: denied Neurological: denied Psychiatric: denies symptoms other than stated above Total of at least 10 systems reviewed, pertinent positives as above and in HPI. Results & Data Medications Administered Enoxaparin Sodium (Lovenox) 40 mg SQ Q24H [facility] Stop: 11/19/19 11:59 Last Admin: 10/21/19 12:12 Dose: 40 mg Documented by: [id number] Admin: 10/20/19 11:53 Dose: 40 mg Documented by: [id number] Folic Acid (Folvite) 1 mg PO [facility] Stop: 11/20/19 08:59 Last Admin: 10/21/19 08:56 Dose: 1 mg Documented by: [id number] Miscellaneous (Remove Nicoderm Patch) 1 ea N/A [id number] [facility] Stop: 11/20/19 08:58 Last Admin: 10/21/19 08:02 Dose: 1 ea Documented by: [id number] Nicotine (Nicoderm Cq) 7 mg TD [facility] Stop: 11/19/19 11:59 Last Admin: 10/21/19 08:02 Dose: 7 mg Documented by: [id number] Admin: 10/20/19 11:52 Dose: 7 mg Documented by: [id number] Thiamine HCl (Vitamin B-1) 100 mg PO [facility] Stop: 11/20/19 08:59 Last Admin: 10/21/19 08:56 Dose: 100 mg Documented by: [id number] Coding Level of Care Code 25936 U Intl Hosp Care Lvl 3
--- NOTE | 2019-10-21 15:22 | Hospitalist Progress Note ---
Date of Service October 21, 2019 Assessment & Plan (1) Alcohol withdrawal: 63-year-old female history of alcohol dependence, tobacco dependence, depression brought to the hospital with 302 for suicidal statements Etoh W/D - Drinks scotch about 1 pint per day - Labs concerning for chronic Etoh use AST>ALT, MCV elevated on admission, about the same today - Folate and Thiamine given in ED - CIWA protocol, 1 mg Ativan PRN - If CIWA consistently >8, will consider adding Librium -Patient still requiring intermittent ativan administration but seems to be better than she was yesterday - Will discuss cessation education prior to DC Depression/Suicide ideation - Psych consult. believe patient is actively at risk or suicide and will need to be admitted when medically clear - 1:1, suicide precautions Tobacco dependence, 5-10 cigs per day - Provide cessation education prior to DC, but not right now - Low dose nicotine patch Wheezing bilaterally on exam Resolved Dvt ppx--ambulate with supervision FEN--regular diet (2) Mood disorder: (3) Suicidal ideation: Supervising Physician Co-Signing Physician Notes I personally examined the patient and verified all dumont points of history and exam, discussed case, and agree with decision making with Dr Lee. still shaky some - but notes more from being upset after talking with psych. fairly reserved due to her being upset when i see her. vitals noted nad but visibly upset heent nc at mmm breathing unlabored no accessory muscles good effort skin no rashes no pallor or icterus. sinus tachy ~110, mild tremulousness probably less than yesterday, no focal neuro deficits. mentation intact. depression, question of suicidality - follow closely psych input noted, under 302 and working on inpt psych placement EtOH abuse/withdrawal - withdrawal seems mild fortunately. continue symptom triggered therapy. doing well in this regard -- while EtOH withdrawal can be significant and sometimes peak as much as 72hrs after last drink, the fact that she is better from a withdrawal standpoing today than yesterday is reassuring -- would be safe for psych facility once one is available. (in fact, some of her withdrawal symptoms today may actually be better attributed to her frustration/agitation) mild EtOH hepatitis - transaminases up, bili normal. more or less the same today. suspect sobriety will allow liver to heal macrocytosis - likely EtOH abuse related, fortunately B12 and folate OK DVT proph - lovenox Subjective Patient resting comfortably, tells me that this whole thing is all a big misunderstanding and that she never intended to hurt herself, pleading with me if I can help get her out today. We discussed that psychiatry would need to evaluate the patient first. She has no medical concerns other than withdrawal symptoms shakiness with walking and fine movements. Review of Systems Constitutional: no fever, no chills, no body aches, no fatigue, no weakness and no weight gain Eyes: no problem reported Respiratory: no cough, no dyspnea and no wheezing Cardiovascular: no chest pain, no dyspnea, no palpitations, no lightheadedness and no syncope Gastrointestinal: no abdominal pain, no nausea and no vomiting Genitourinary: no dysuria Physical Exam Physical Exam: Constitutional: 63 year old woman appearing older than stated age resting in bed slightly tremulous Eyes: Anicteric sclerae, EOMMI bilaterally Respiratory: Chest expansion symmetric, lung sounds vesicular in all lung zuluaga Cardiovascular: Heart sounds dual, no murmurs rubs skips or gallops, rate in the 90's-100's, peripheral pusles intact, no lower limb edema GI: Abdomen soft/ nontender Skin: Dry no lesions Results & Data Vital Signs (Past 12 Hours) Vital Signs Temp Pulse Resp BP Pulse Ox 10/21/19 14:32 36.6 C 112 H 18 150/112 H 95 10/21/19 11:55 36.7 C 103 H 18 159/107 H 97 10/21/19 07:25 36.9 C 91 H 16 167/118 H 98 Resident Activity Tracking Resident Involvement: Resident Care Provided Care Provided: Adult Hospital Medicine
--- NOTE | 2019-10-21 16:12 | Billing Data ---
Date of Service October 21, 2019 Coding Level of Care Code 90608 Subseq Hosp Care Lvl 3
[2019-10-21] MEDS ORDERED: IBUPROFEN 200 MG TAB PO PRN (19:34)
[2019-10-22] MEDS: NICOTINE 7 MG/24 HR TDSY TD SCH (07:28)
[2019-10-22] MEDS: THIAMINE HCL 100 MG TAB PO SCH (07:29)
[2019-10-22] MEDS: FOLIC ACID 1 MG TAB PO SCH (07:29)
--- NOTE | 2019-10-22 11:54 | Hospitalist Progress Note ---
Date of Service October 22, 2019 Assessment & Plan (1) Alcohol withdrawal: 63-year-old female history of alcohol dependence, tobacco dependence, depression brought to the hospital with 302 for suicidal statements Etoh W/D - Drinks scotch about 1 pint per day - Labs concerning for chronic Etoh use AST>ALT, MCV elevated on admission - Folate and Thiamine given in ED - Continue CIWA protocol, 1 mg Ativan PRN - Required one dose of ativan yesterday afternoon, anxiety and tremors have improved this AM Depression/Suicide ideation - Psych consult. believe patient is actively at risk or suicide and will need to be admitted. - 1:1, suicide precautions Tobacco dependence, 5-10 cigs per day - Provide cessation education prior to DC, but not right now - Low dose nicotine patch Wheezing bilaterally on exam Resolved Dvt ppx--ambulate with supervision FEN--regular diet (2) Mood disorder: (3) Suicidal ideation: Supervising Physician Co-Signing Physician Notes I personally examined the patient and verified all dumont points of history and exam, discussed case, and agree with decision making with Dr Reyes. shaking better. no complaints today. awaiting psych bed placement vitals noted nad heent nc at mmm breathing unlabored no accessory muscles good effort. no focal neuro deficits. mentally intact. essentially no tremor. depression, suicidality - follow closely psych input noted, under 302 and working on inpt psych placement - stable for psych bed when one is available. EtOH abuse/withdrawal - withdrawal seemed mild fortunately. now essentially appears done with withdrawal symptoms - stable for psych placement. mild EtOH hepatitis - transaminases up, bili normal. suspect sobriety will allow liver to heal - outpt f/u of CMP in ~1-2wks macrocytosis - likely EtOH abuse related, fortunately B12 and folate OK - outpt CBC f/u DVT proph - lovenox Subjective Doing well this am, no acute complaints. Said only needed one dose of ativan yesterday evening. Tremors are less. Anxiety has decreased. No hallucinations, no seizures. Review of Systems Review of Systems: All systems reviewed & are unremarkable except as noted in HPI & below Physical Exam Constitutional: WD/WN, vitals as above Eyes: PERRL, conjunctivae normal, anicteric sclerae ENMT: external ear and nose normal, oropharynx normal Neck: trachea midline, no thyromegaly Respiratory: Auscultation: + wheezes (bilateral ) Cardiovascular: RRR, no murmur, no edema Gastrointestinal (Abdomen): normal bowel sounds, soft, nontender, no hepatosplenomegaly Musculoskeletal: no cyanosis or clubbing, extremities motor strength 5/5 Skin: no rashes, warm and dry Neurologic: PERRL, EOMI, accommodation nl, no face palsy, no dysarthria Psychiatric: A+Ox3, euthymic affect Affect: + depressed affect and + anxious affect Results & Data Vital Signs (Past 12 Hours) Vital Signs Temp Pulse Pulse Resp BP BP Pulse Ox 10/22/19 07:33 37.1 C 83 19 150/109 H 96 10/22/19 03:04 36.6 C 93 H 18 141/99 H 98 10/22/19 00:46 94 H Resident Activity Tracking Resident Involvement: Resident Care Provided Care Provided: Adult Hospital Medicine
[2019-10-22] MEDS: ENOXAPARIN INJ 40 MG/0.4 ML SYR SQ SCH (12:19)
--- NOTE | 2019-10-22 16:37 | Billing Data ---
Date of Service October 22, 2019 Coding Level of Care Code 86699 Subseq Hosp Care Lvl 2
--- NOTE | 2019-10-23 18:21 | Discharge Summary ---
Date of Service October 23, 2019 Admission HPI Per Admitting Provider Catherine"Tahira" Jaiden is a 63-year-old female admitted medically for concern for alcohol withdrawal, after presenting to the ED on a 302 mental health warrant. It is reported that police arrived at patient's home after the report was made that the patient had been texting her son-in-law asking if he had a gun, and verbalizing suicidal statements. 302 petitioning statement was completed by the patient's daughter and reads: "Received a text message asking if we still had a pistol. We asked why and she said for herself and that she was looking for an easy way out. She also verbally tole me that she's not happy and she wanted to kill herself and has been unhappy since the of her son in 2006." The patient was admitted with a blood alcohol level of 306.6 and is being monitored for signs and symptoms of withdrawal. Psychiatric consultation was requested to evaluate the patient for "depression, suicide risk, and 302." Patient's case was reviewed during morning report with psychiatric nurse liaison's and supervising psychiatrist. Initial evaluation from psychiatric liaison was reviewed prior to this provider's interaction with the patient. Patient was cooperative with psychiatric evaluation. She provided verbal consent to allow Tawnya Martin PA-C to observe today's encounter. When asked to explain the events leading to her admission, the patient states "Well...accord ing to what I was told...I guess people had concerns I was going to hurt myself." Patient begins our conversation by explaining her side of the text message with her son-in-law. The patient states "I did ask for the pistol because I said I needed to take care of something. When he asked what I needed to take care of, I said me." Patient then informs this provider that she had asked about the gun, hoping that her son-in-law would do some target shooting with her. She continues to verbalize desire to have a gun for protection, stating "I think it is just all the stuff he see on the news, it is scary. 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 Patient states "after I sent the text messages, I just went about my business. Next thing I know, there were lights flashing outside of my house, and the police showed up with my , daughter, and son-in-law." When asked about the presence of suicidal ideation, the patient states "sure, I have random thoughts from time to time, just like anyone else would." Patient states that the frequency of the thoughts are "I do not know, 1-2 times a year would be a lot." The patient denies history of these thoughts occurring with a specific plan, and denies previous suicide attempts. She states she has never worked with any outpatient psychiatric providers, and has never required inpatient psychiatric treatment in the past. The patient, herself, is denying signs and symptoms of depression. She states that sleep and appetite are unchanged for her, and the concentration remains decent "I am still sharp, I always have been." She denies feelings of hopelessness, and says that her overall mood is "I am generally a pretty happy person, I do not really get down too often." Patient does admit to experiencing depressive symptoms "when my daughter got , and when we found my son unresponsive inside her house." She admits that her son 13 years ago, having struggled with alcohol abuse. The patient states that he overtook caon-bla-bawjmiv cough medications due to "his allergies were acting up, and he would forget he took the medication already." She does admit that she had a significant increase in her alcohol consumption after that time. The patient states that she drinks a pint of scotch daily, and has been doing so rather regularly for the past 13 years. She states "I guess that was my sedative." Motivational interviewing was used to determine patient's perception of if her alcohol use has been problematic. Patient denies concerns related to her alcohol use, saying "it never caused any problems for anyone, at least no one has told me that." Patient does not feel that her alcohol use is to the point that it requires inpatient drug and alcohol rehabilitation, but states "I probably would not think it was a problem unless it started causing issues in my family." According to the patient, her family has not approached her about their concerns related to mood or her alcohol use. Patient does verbalize willingness for outpatient therapy, and even medication evaluation if indicated. Patient was informed there is also possibility that inpatient psychiatric hospitalization may be recommended, which she feels is not necessary stating "I would not want to do that, I would not want to go." She also denies willingness for inpatient drug and alcohol rehabilitation. Pt denies SI, HI, SIB, A/V hallucinations, paranoia, marcos/hypomania, other symptoms more suggestive of a bipolar presentation, OCD, PTSD, eating disorder, and other specific psychiatric symptoms. Collateral information was gathered from the patient's and daughter, who both express significant concern about changes in the patient's mood and her overall alcohol consumption. See psychiatric liaison notes for additional information. It appears as though the patient has been frequently making suicidal statements over the past 6 months. Although the statements are generally made while the patient is under the influence of alcohol, the statements are consistent and intensifying in frequency and severity over the past month. They also state that the patient has been alluding to suicidal ideation on social media as well. 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 described the patient as "a recluse." Family did verbalize concern that the patient "has become manipulative to the point at which she will not admit to having any issues with drinking." He did verbalize concern indicating they don't feel the patient can be discharge home safely without "some sort of help." Principal Diagnosis mild EtOH withdrawal depression/suicidality Discharge Exam see progress note 10/22. pt was accepted at psych early AM and overnight coverage authorized/ordered the dc. Discharge Data Allergies Allergy/AdvReac Type Severity Reaction Status Date / Time [id number] Allergy Unknown Nasal Uncoded 10/19/19 20:35 Discharge Consultations 10/20/19 08:54 ED Decision to Admit Stat 10/20/19 11:28 Consult Psychiatry Routine Hospital Course (1) Alcoholic intoxication: sobriety attained without incident (2) Alcohol withdrawal: was fortunately quite mild and short lived - nothing worse than mild tachycardia and tremor that both quickly resolved (3) Mood disorder: for inpatient psych (4) Suicidal ideation: for inpatient psych (5) Elevated blood pressure reading with diagnosis of hypertension: no noted hx of HTN, easily could have essential hypertension and not know it; at the same time she was quite stressed during this hospital stay and this could be the culprit for the high readings as well. no hypertensive symptoms - safe for outpt/ongoing monitoring. Total Time Total Time Spent Total Time Spent (In Minutes): not seen on 10/23 Discharge Plan Discharge Items Patient Disposition: Transfer Behavioral Health Fac Reason For Visit: ALCOHOL WITHDRAW, DEPRESSION Discharge Diagnosis: Suicidal ideation Activity: Per Instructions section Non-emergency contact: Psychiatrist Call non-emergency contact if: your symptoms worsen Follow-up/Referrals: Humble Sellers MD [Primary Care Provider] - Diet: Regular Addtl Attending Provider Instructions: Patient is medically stable for transfer to mental health facility. She was treated here for alcohol withdrawal as she drinks about a pint of scotch per day but had mild tremulousness which has since resolved. She is being transferred secondary to making suicidal statements to her family including and daughter and texting her son and law to ask for his guns to use on herself. She has been denying any suicidal ideation and tells us it was a misunderstanding but psychiatry was consulted and recommended inpatient psychiatric treatment. Pending Studies at Discharge: No Stand-Alone Forms: [facility], Suicide Prevention Resources Medications and DC Order Prescriptions: No Action No Known Home Medications RF: 0 Discharge Orders: Discharge Order (Routine); Ordered 10/23/19 Ordered By: Shane Lee Admission Data Admit Date/Time: 10/20/19 10:03 Attending Provider: John Nicole Admit Provider: Bertram Reyes Primary Care Provider: Humble Sellers Other Providers: Froilan Izquierdo ; Deion Sandra ; Jasmyn Brumfield Arthur J. ; Gen Foster ; Thong Delong ; Jennifer Hoff ; Parker Payton ; Mago Sarah ; Viviana Ruhsing ; Dina Morrison Lynette D ; Bertram Weiss I. ; Rhonda Swanson ; Violeta Robles ; Lizy Day ; Charanjit Palacio Other Interventions: Discharge Summary Assessment (RN) Last Done: 10/23/19 02:54 DC Date/Time DO NOT enter until pt leaves facility: 10/23/19 03:30 Coding Level of Care Code None Diagnoses Alcoholic intoxication F10.920 Complication of substance-induced condition: uncomplicated Alcohol withdrawal F10.239 Mood disorder F39 Suicidal ideation R45.851 Elevated blood pressure reading with diagnosis of hypertension I10
== END 2019-10-23 03:30 | DRG 897 ==
LOC: ED 19:52 → 2N 10-20 10:03

== ENCOUNTER 2025-06-20 19:23 | Inpatient (IN) ==
[2025-06-20 19:57] LABS: Hematocrit (blood only) 40.3 % (37.0-47.0); Hemoglobin 14.2 g/dl (12.0-16.0); Mean Corpuscular Hemoglobin 32.3 pg (25.0-34.0); Mean Corpuscular Volume 91.8 fL (80.0-100.0); Platelet Count 341 K/uL (130-400); RDW Standard Deviation 45.6 fL (36.4-46.3); Red Blood Count 4.39 M/uL (4.20-5.40); White Blood Count 20.10 K/ul (4.8-10.8)
[2025-06-20 20:15] LABS: Alanine Aminotransferase 36 U/L (7-52); Albumin Globulin Ratio 0.8 (0.9-2); Albumin Level 3.4 gm/dl (3.4-5.0); Alkaline Phosphatase 158 U/L (34-104); Anion Gap 11 (3-11); Bilirubin,Total 0.8 mg/dl (0.2-1.0); Blood Urea Nitrogen 36 mg/dl (6-23); Calcium 9.6 mg/dl (8.6-10.3); Carbon Dioxide 26 mmol/L (21-32); Chloride 91 mmol/L (98-107); Globulin 4.5 gm/dl (2.5-4.0); Glucose 129 mg/dl (70-99(Fasting)); Lipase 8 U/L (11-82); Potassium 3.2 mmol/L (3.5-5.1); Sodium 128 mmol/L (136-145); Total Protein 7.9 gm/dl (6.0-8.3)
[2025-06-20 20:20] LABS: Dohle Bodies 1+; Immature Granulocytes # (auto) 0.21 K/uL (0.01-0.20); Immature Granulocytes % (auto) 1.0 %; Toxic Vacuolation 1+
[2025-06-20 20:47] LABS: Magnesium 2.3 mg/dl (1.7-2.4)
[2025-06-20] MEDS: SODIUM CHLORIDE 0.9% 1,000 ML IV ONE (20:50)
[2025-06-20] MEDS: AZITHROMYCIN 250 MG TAB PO ONE (21:02)
[2025-06-20] MEDS: cefTRIAXone SODIUM 2,000 MG/50 ML BAG IV STA (21:17)
--- NOTE | 2025-06-20 21:26 | Emergency Department Note ---
Impression & Plan Sepsis, Pneumonia, Acute hyponatremia, Hypokalemia, Elevated procalcitonin, Elevated troponin ED Provider Note HISTORY OF PRESENT ILLNESS: Patient is a 69-year-old female presenting with dizziness and cough. Patient reports for the last week she has been "super dehydrated." When asked what this means, she states she is just not had much of an appetite and has not really been able to eat or drink anything. She reports that she started having a nonproductive cough about a week ago. Denies any chest pain or significant shortness of breath. She denies any recent sick contact exposures. Reports feeling very rundown and tired over the last week. Denies any recent steroids or antibiotic use. She does report she has had intermittent episodes of fevers and chills. She states that she has not taken any antipyretics this evening. Denies any dysuria or hematuria. Denies any abdominal pain. Denies any DVT or PE history. ROS: as above PHYSICAL EXAM: Constitutional: Patient appears in no acute distress. HENT: Head: Normocephalic and atraumatic. Eyes: EOMI, PERRL Mouth/Throat: Mucous membranes moist. Neck: Trachea midline. Neck supple. Cardiovascular: Tachycardic with regular rhythm. No murmurs, rubs or gallops. Intact distal pulses. Pulmonary/Chest: No respiratory distress. Breath sounds clear and equal bilaterally. Coarse breath sounds in the left upper lung field. Abdominal: Abdomen soft, no tenderness, rebound or guarding. Musculoskeletal: No edema, tenderness or deformity noted. Skin: Warm and dry. No rash, erythema, pallor or cyanosis Psychiatric: Appropriate mood and affect for situation. Neurological: Alert and keenly responsive. CN II-XII grossly intact, moving all extremities equally and fully. MDM: - Vitals signs showed tachycardia - History obtained via patient. History as above. - Chronic conditions affecting care: Mood disorder - Differential diagnoses include, but are not limited to: Congestive heart failure; acute coronary syndrome; COPD/asthma exacerbation; pulmonary edema; pulmonary embolism; pneumonia; pneumothorax; viral syndrome - Order placed for continuous cardiac monitoring. At this time, monitor showed rate of 92 bpm with normal sinus rhythm, per my interpretation. - External medical records reviewed. Discharge summary dated 10/23/2019 was reviewed. Patient was admitted at that time for alcohol withdrawal and depression and suicidality. - EKG image interpreted by myself showed normal sinus rhythm. Rate 75 bpm. QT 376. No acute ischemic changes. - Laboratory workup interpreted by myself showed leukocytosis (WBC 20.10) with neutrophil predominance; normal lactate; hyponatremia (Na 128); hypokalemia (K 3.2); elevated AST (77); elevated troponin (23.6); normal lipase; elevated procalcitonin (3.80) - Blood cultures obtained - UA negative for infection - CXR reviewed by myself showed a dense left upper lobe consolidation concerning for pneumonia, per my interpretation. - Patient given 2g IV rocephin and 500 mg PO azithromycin empirically - Patient developed fever in ER. Given 1g IV tylenol. - Given 1L NS. Patient sepsis fluid volume calculation based on ideal body weight is 1568.10 mL. Patient does not meet severe sepsis criteria with her vital sign stability and normal lactate, so no further fluids were administered. However, she does meet sepsis criteria - Discussion was had with shoe caser about patient's case and need for admission - Hospitalist consulted for admission. Dr. Ibanez requested CTA chest be obtained. - [facility] I have personally spent 46 minutes of critical care time in the direct management of this patient. This includes bedside care, interpretation of diagnostic studies, and testing, discussion with consultants, patient, and family members, and other required patient management activities. This 46 minutes is in excess of all separately billable procedures. ASSESSMENT AND PLAN: Diagnosis: Sepsis; pneumonia; hyponatremia; acute hypokalemia; elevated troponin; elevated procalcitonin Plan: Admit Past Med/Surg History Problem List (Updated 06/20/25 @ 23:49 by Neeta De Los Santos MD) Elevated troponin (Acute) Elevated procalcitonin (Acute) Hypokalemia (Acute) Acute hyponatremia (Acute) Pneumonia (Acute) Sepsis (Acute) Elevated blood pressure reading with diagnosis of hypertension Mood disorder (Acute) Suicidal ideation (Acute) Medical History (Updated 06/20/25 @ 23:49 by Neeta De Los Santos MD) No pertinent past medical history Family History Other No pertinent family history in first degree relatives Social History Smoking Status: Former smoker Cigarettes Per Day: 6; Hx Alcohol Use: Yes Alcohol type: hard liquor Hx Substance Use: No Preferred Language: Barbadian Communication Ability: Effective Operation Shift Supervisor Required: No Beliefs That Will Affect Care: Caodaism (Restoration) Current Living Situation: Spouse Feels Safe at Home: Yes Assistive Devices: None Allergies Allergies Allergy/AdvReac Type Severity Reaction Status Date / Time No Known Allergies Allergy Verified 06/20/25 21:28 Home Meds Home Medications Medication Instructions Recorded Confirmed No Known Home Medications 10/19/19 06/20/25 Results & Data (ED) Vital Signs Vital Signs - 24 hr 06/20/25 19:27 06/20/25 21:18 06/20/25 21:30 Temperature 36.8 C 38.3 C H Temperature Source Temporal Artery Scan Oral Pulse Rate 111 H 98 H Pulse Rate [Left Apical] 92 H Respiratory Rate 18 24 Respiratory Effort / Characteristics Non-Labored Spontaneous Respiratory Depth Normal Respiratory Pattern Blood Pressure 133/87 Blood Pressure [Right Arm] 149/106 H Blood Pressure Mean 102 Blood Pressure Mean [Right Arm] 120 Blood Pressure Position [Right Arm] Lying Pulse Oximetry 92 95 Oxygen Delivery Method Room Air Nasal Cannula Oxygen Flow Rate 2 Sepsis Recent Fever Within 48 Hours No Sepsis New/Unexplained Change in Mental Status No Sepsis Action Taken by Nursing No Action Required 06/20/25 21:32 06/20/25 23:14 Temperature Temperature Source Pulse Rate Pulse Rate [Left Apical] Respiratory Rate Respiratory Effort / Characteristics Non-Labored Spontaneous Respiratory Depth Normal Respiratory Pattern Regular Blood Pressure Blood Pressure [Right Arm] Blood Pressure Mean Blood Pressure Mean [Right Arm] Blood Pressure Position [Right Arm] Pulse Oximetry 96 Oxygen Delivery Method Nasal Cannula Oxygen Flow Rate 2 Sepsis Recent Fever Within 48 Hours Sepsis New/Unexplained Change in Mental Status Sepsis Action Taken by Nursing Laboratory Data 06/20/25 19:42 06/20/25 19:42 Lab Results 06/20/25 06/20/25 06/20/25 Range/Units 19:42 21:16 22:53 WBC 20.10 H (4.8-10.8) K/ul RBC 4.39 (4.20-5.40) M/uL Hgb 14.2 (12.0-16.0) g/dl Hct 40.3 (37.0-47.0) % MCV 91.8 (80.0-100.0) fL MCH 32.3 (25.0-34.0) pg MCHC 35.2 (32.0-36.0) g/dL RDW Std Deviation 45.6 (36.4-46.3) fL RDW Coeff of Nicole 13.5 (11.5-14.5) % Plt Count 341 (130-400) K/uL MPV 9.5 (9.4-12.4) fL Immature Gran % (Auto) 1.0 % Neut % (Auto) 93.3 % Lymph % (Auto) 2.8 % [place] % (Auto) 2.3 % Eos % (Auto) 0.0 % Baso % (Auto) 0.6 % Neut # (Auto) 18.74 H (1.40-6.50) K/uL Lymph # (Auto) 0.57 L (1.20-3.40) K/uL [place] # (Auto) 0.46 (0.11-0.59) K/uL Eos # (Auto) 0.00 (0.00-0.50) K/uL Baso # (Auto) 0.12 (0.00-0.20) K/uL Immature Gran # (Auto) 0.21 H (0.01-0.20) K/uL Toxic Vacuolation 1+ Dohle Bodies 1+ Sodium 128 L (136-145) mmol/L Potassium 3.2 L (3.5-5.1) mmol/L Chloride 91 L (98-107) mmol/L Carbon Dioxide 26 (21-32) mmol/L Anion Gap 11 (3-11) BUN 36 H (6-23) mg/dl Creatinine 0.71 (0.6-1.2) mg/dl Est Cr Clr Drug Dosing Not Reportable eGFR 93.13 BUN/Creatinine Ratio 50.7 H (10-20) Glucose 129 H (70-99(Fasting)) mg/dl Lactate 1.7 (0.4-2.0) mmol/L Calcium 9.6 (8.6-10.3) mg/dl Magnesium 2.3 (1.7-2.4) mg/dl Total Bilirubin 0.8 (0.2-1.0) mg/dl AST 77 H (13-39) U/L ALT 36 (7-52) U/L Alkaline Phosphatase 158 H (34-104) U/L Troponin I High Sens 23.6 H (0-14) pg/ml Total Protein 7.9 (6.0-8.3) gm/dl Albumin 3.4 (3.4-5.0) gm/dl Globulin 4.5 H (2.5-4.0) gm/dl Albumin/Globulin Ratio 0.8 L (0.9-2) Lipase 8 L (11-82) U/L Procalcitonin 3.80 H (0-0.5) ng/ml Urine Color Yellow Urine Appearance Clear (Clear) Urine pH 6.0 (4.5-7.5) Ur Specific [place] 1.023 (1.000-1.030) Urine Protein 2+ H (Negative) Urine Glucose (UA) Negative (Negative) Urine Ketones Negative (Negative) Urine Blood Negative (Negative) Urine Nitrite Negative (Negative) Urine Bilirubin Negative (Negative) Urine Urobilinogen Negative (Negative) Ur Leukocyte Esterase Negative (Negative) Urine WBC (Auto) 0-5 (0-5) /hpf Urine RBC (Auto) 0-2 (0-2) /hpf U Hyaline Cast (Auto) 0-2 (0-2) /lpf U Epithel Cells (Auto) 3-5 H (0-2) /hpf Urine Bacteria (Auto) None Seen (None Seen) Urine Mucus Present A (None Prsent) Urine Comment Administered Medications Discontinued Medications Azithromycin (Azithromycin 250 Mg Tab) 500 mg PO NOW ONE Stop: 06/20/25 20:33 Last Admin: 06/20/25 21:02 Dose: 500 mg Documented By: DORA Sodium Chloride (Nss) 1,000 mls @ 999 mls/hr IV .Q1H1M ONE Stop: 06/20/25 21:18 Last Infusion: 06/20/25 22:11 Dose: Infused Documented By: Admin: 06/20/25 20:50 Dose: 999 mls/hr Documented By: DORA Ceftriaxone Sodium (Rocephin) 2,000 mg in 50 mls @ 100 mls/hr IV NOW STA Stop: 06/20/25 21:01 Last Infusion: 06/20/25 21:50 Dose: Infused Documented By: Admin: 06/20/25 21:17 Dose: 100 mls/hr Documented By: KRUNAL Acetaminophen (Ofirmev) 1,000 mg in 100 mls @ 400 mls/hr IV NOW STA Stop: 06/20/25 22:10 Last Infusion: 06/20/25 22:36 Dose: Infused Documented By: Admin: 06/20/25 22:15 Dose: 400 mls/hr Documented By: KRUNAL Ioversol (Optiray 320 125ml) 118 ml IV ONCE ONE Stop: 06/20/25 22:43 Last Admin: 06/20/25 22:43 Dose: 118 ml Documented By: USHA Miscellaneous (Patient's Height &/Or Weight Needed) 1 each N/A NOW STA Stop: 06/20/25 23:58 Last Admin: 06/21/25 00:11 Dose: 1 each Documented By: KRUNAL Imaging Data Radiologist's Impression: Chest X-Ray 06/20/25 20:10 Exam(s): XR CXR 1 VIEW EXAM: XR Chest, 1 View CLINICAL HISTORY: dizziness. TECHNIQUE: Frontal view of the chest. COMPARISON: No relevant prior studies available. FINDINGS: Heart is mildly enlarged. Ectatic aorta with atherosclerotic calcifications. Extensive left mid lung field and apical pleural- parenchymal thickening with air bronchograms within apical segment. No CHF. No pleural effusion or pneumothorax. Levoscoliosis. Diffuse osteopenia. IMPRESSION: Extensive predominantly left upper lobe consolidation with apical pleural parenchymal thickening. Considerations include a neoplasm, pneumonia or tuberculosis. Recommend comparison with prior studies if available. Electronically signed by: Bertram Wilks M.D. 06/20/25 22:34 PM Discharge Plan Visit Data Chief Complaint: Dizziness Stated Complaint: DIZZINESS, WEAKNESS ED Provider: Neeta De Los Santos Discharge Problem: Sepsis, Pneumonia, Acute hyponatremia, Hypokalemia, Elevated procalcitonin, Elevated troponin Condition: Serious Forms Stand Alone Forms: [employer] Prescriptions Prescriptions: No Action No Known Home Medications Referrals Referrals: Humble Sellers MD [Primary Care Provider] -
[2025-06-20] MEDS: ACETAMINOPHEN 1,000 MG/100 ML VIAL IV STA (22:15)
--- NOTE | 2025-06-20 22:35 | XRay Report ---
Exam(s): XR CXR 1 VIEW EXAM: XR Chest, 1 View CLINICAL HISTORY: dizziness. TECHNIQUE: Frontal view of the chest. COMPARISON: No relevant prior studies available. FINDINGS: Heart is mildly enlarged. Ectatic aorta with atherosclerotic calcifications. Extensive left mid lung field and apical pleural- parenchymal thickening with air bronchograms within apical segment. No CHF. No pleural effusion or pneumothorax. Levoscoliosis. Diffuse osteopenia. IMPRESSION: Extensive predominantly left upper lobe consolidation with apical pleural parenchymal thickening. Considerations include a neoplasm, pneumonia or tuberculosis. Recommend comparison with prior studies if available. Electronically signed by: Bertram Wilks M.D. 06/20/25 22:34 PM
[2025-06-20] MEDS: OPTIRAY 320 125ml IV ONE (22:43)
[2025-06-20 23:19] LABS: Appearance Urine Clear (Clear); Bacteria Urine Automated None Seen (None Seen); Cast Urine Automated 0-2 /lpf (0-2); Glucose Urine UA Negative (Negative); WBC Urine Automated 0-5 /hpf (0-5)
[2025-06-20 23:23] LABS: RBC Urine Automated 0-2 /hpf (0-2)
[2025-06-20] MEDS ORDERED: VANCOMYCIN CONSULT ACTIVE PRN (23:38)
--- NOTE | 2025-06-21 00:10 | History & Physical Report ---
Date of Service June 21, 2025 Assessment & Plan (1) Sepsis due to pneumonia: (2) Elevated troponin: (3) Hypokalemia: (4) Dehydration, moderate: Plan The patient is a 69-year-old female with past medical history including alcohol and tobacco abuse, mood disorder, elevated blood pressure reading with diagnosis of hypertension, and suicidal ideation. She denies any recent use of alcohol or tobacco, and has no suicidal ideation. The patient presents to the emergency department with family, with complaint of 2 weeks of chills, cough, fatigue, generalized aches, feeling very dehydrated, decreased oral intake for foods, and intermittent dizziness. She denies any recent travels or sick exposures. She reports that 2 days into her symptoms, she initially developed a temperature of 100.5, and has had intermittent temperatures since that time. She denies any recent weight loss. While in the emergency department, she underwent chest x- ray which showed a significant left upper lobe pneumonia. She was given Tylenol 1 g IV, normal saline 1 L IV, ceftriaxone 2 g IV, and azithromycin 5 mg p.o. by the ED, and then referred for evaluation for admission to the [facility]. Sepsis due to pneumonia- Significant left upper lobe pneumonia with associated scarring. Has the appearance of post obstruction Received ceftriaxone 2 g IV and azithromycin 500 mg p.o. from the ED Placed on vancomycin IV and Zosyn IV for admission Duonebs every 4 hours while awake and every 2 hours when necessary. Methylprednisolone 80 mg IV now, then 40 mg IV every 12 hours CTA chest is negative for PE, but does confirm significant left upper lobe pneumonia Dehydration/hypokalemia/hyponatremia- Status post 1 L normal saline bolus from the ED Place on NSS + KCl 20 mEq at 100 mL/h x 2 L Repeat laboratories in a.m. Elevated troponin- Troponin 23.6 on admission Likely supply/demand mismatch Recheck laboratories in the a.m. CODE STATUS: Conditional Will except chest compressions and defibrillation if needed Does not want to be intubated for the long-term, but will except intubation if needed before and/or after bronchoscopy if performed Cachexia- BMI 17.7 Patient reports no recent changes in body weight Will see how her appetite improves after pneumonia is treated History of Present Illness Chief Complaint: The patient presents to the emergency department with family, with complaint of 2 weeks of chills, cough, fatigue, generalized aches, feeling very dehydrated, decreased oral intake for foods, and intermittent dizziness. She denies any recent travels or sick exposures. She reports that 2 days into her symptoms, she initially developed a temperature of 100.5, and has had intermittent temperatures since that time. She denies any recent weight loss. Primary Care Provider: Humble Sellers MD The patient is a 69-year-old female with past medical history including alcohol and tobacco abuse, mood disorder, elevated blood pressure reading with diagnosis of hypertension, and suicidal ideation. She denies any recent use of alcohol or tobacco, and has no suicidal ideation. The patient presents to the emergency department with family, with complaint of 2 weeks of chills, cough, fatigue, generalized aches, feeling very dehydrated, decreased oral intake for foods, and intermittent dizziness. She denies any recent travels or sick exposures. She reports that 2 days into her symptoms, she initially developed a temperature of 100.5, and has had intermittent temperatures since that time. She denies any recent weight loss. While in the emergency department, she underwent chest x- ray which showed a significant left upper lobe pneumonia. She was given Tylenol 1 g IV, normal saline 1 L IV, ceftriaxone 2 g IV, and azithromycin 5 mg p.o. by the ED, and then referred for evaluation for admission to the [facility]. Allergies Allergy/AdvReac Type Severity Reaction Status Date / Time No Known Allergies Allergy Verified 06/20/25 21:28 Home Medications Medication Instructions Recorded Confirmed Type No Known Home Medications 10/19/19 06/20/25 History Past Med/Surg History Problem List (Updated 06/21/25 @ 05:12 by Alban Ibanez MD) Dehydration, moderate Sepsis due to pneumonia Elevated troponin (Acute) Elevated procalcitonin (Acute) Hypokalemia (Acute) Acute hyponatremia (Acute) Pneumonia (Acute) Sepsis (Acute) Elevated blood pressure reading with diagnosis of hypertension Mood disorder (Acute) Suicidal ideation (Acute) Medical History (Updated 06/21/25 @ 05:12 by Alban Ibanez MD) No pertinent past medical history Family History Other No pertinent family history in first degree relatives Social History Smoking Status: Current every day smoker Tobacco Type: Cigarettes Cigarettes Per Day: 1/2 pack per day; Hx Alcohol Use: No Hx Substance Use: No Preferred Language: Syriac Communication Ability: Effective [employer] Secretary Required: No Beliefs That Will Affect Care: None Current Living Situation: Spouse Feels Safe at Home: Yes Assistive Devices: Glasses Review of Systems Review of Systems: The patient denies palpitations, lower extremity swelling, sore throat, weight change, nausea, vomiting, diarrhea , constipation, abdominal pain, pelvic pain, blood in urine or stool, dysuria, urinary frequency or urgency, memory loss, loss of consciousness, rash, abnormal bruising or bleeding, focal weakness, numbness or tingling in arms or legs, back or neck pain, or night sweats. The review of systems is otherwise negative other than for that already noted above, and at least 10 systems have been reviewed. Physical Exam Physical Exam: The patient is awake, alert and oriented 3, looks underweight and cachectic, normocephalic and atraumatic, lying in bed and in no acute distress. HEENT--PERRL, EOMI, mucous membranes and oropharynx moderately dry. Neck--supple. No JVD. No bruits. Thyroid normal, trachea midline, no adenopathy. Heart--normal S1 and S2. No murmurs, rubs or gallops. Lungs--crackles or rhonchi with wheezes on the left. No respiratory distress, no accessory muscle use. Abdomen--normal bowel sounds and soft. Nontender. Nondistended. Extremities--No edema. There are good distal pulses b/l. Dermatologic--normal skin turgor, normal color, no abnormal lymph nodes, no rash. Neurologic--cranial nerves II through XII grossly intact. Rheumatologic--normal range of motion. Psychiatric--normal affect. Results & Data Results & Data Vital Signs (Past 12 Hours) Vital Signs Temp Pulse Pulse Resp BP BP Pulse Ox 06/20/25 23:14 96 06/20/25 21:30 38.3 C H 92 H 24 149/106 H 95 06/20/25 21:18 98 H 06/20/25 19:27 36.8 C 111 H 18 133/87 92 O2 Del Method O2 Flow Rate 06/20/25 23:14 Nasal Cannula 2 06/20/25 21:30 Nasal Cannula 2 06/20/25 21:18 06/20/25 19:27 Room Air Laboratory Results Laboratory Results WBC 20.10 K/ul (4.8-10.8) H 06/20/25 19:42 RBC 4.39 M/uL (4.20-5.40) 06/20/25 19:42 Hgb 14.2 g/dl (12.0-16.0) 06/20/25 19:42 Hct 40.3 % (37.0-47.0) 06/20/25 19:42 MCV 91.8 fL (80.0-100.0) 06/20/25 19:42 MCH 32.3 pg (25.0-34.0) 06/20/25 19: MCHC 35.2 g/dL (32.0-36.0) 06/20/25 19:42 RDW Std Deviation 45.6 fL (36.4-46.3) 06/20/25 19:42 RDW Coeff of Nicole 13.5 % (11.5-14.5) 06/20/25 19:42 Plt Count 341 K/uL (130-400) 06/20/25 19:42 MPV 9.5 fL (9.4-12.4) 06/20/25 19:42 Immature Gran % (Auto) 1.0 % 06/20/25 19:42 Neut % (Auto) 93.3 % 06/20/25 19:42 Lymph % (Auto) 2.8 % 06/20/25 19:42 [place] % (Auto) 2.3 % 06/20/25 19:42 Eos % (Auto) 0.0 % 06/20/25 19:42 Baso % (Auto) 0.6 % 06/20/25 19:42 Neut # (Auto) 18.74 K/uL (1.40-6.50) H 06/20/25 19:42 Lymph # (Auto) 0.57 K/uL (1.20-3.40) L 06/20/25 19:42 [place] # (Auto) 0.46 K/uL (0.11-0.59) 06/20/25 19:42 Eos # (Auto) 0.00 K/uL (0.00-0.50) 06/20/25 19:42 Baso # (Auto) 0.12 K/uL (0.00-0.20) 06/20/25 19:42 Immature Gran # (Auto) 0.21 K/uL (0.01-0.20) H 06/20/25 19:42 Toxic Vacuolation 1+ 06/20/25 19:42 Dohle Bodies 1+ 06/20/25 19:42 Sodium 128 mmol/L (136-145) L 06/20/25 19:42 Potassium 3.2 mmol/L (3.5-5.1) L 06/20/25 19:42 Chloride 91 mmol/L (98-107) L 06/20/25 19:42 Carbon Dioxide 26 mmol/L (21-32) 06/20/25 19:42 Anion Gap 11 (3-11) 06/20/25 19:42 BUN 36 mg/dl (6-23) H 06/20/25 19:42 Creatinine 0.71 mg/dl (0.6-1.2) 06/20/25 19:42 Est Cr Clr Drug Dosing Not Reportable 06/20/25 19:42 eGFR 93.13 06/20/25 19:42 BUN/Creatinine Ratio 50.7 (10-20) H 06/20/25 19:42 Glucose 129 mg/dl (70-99(Fasting)) H 06/20/25 19:42 Lactate 1.7 mmol/L (0.4-2.0) 06/20/25 21:16 Calcium 9.6 mg/dl (8.6-10.3) 06/20/25 19:42 Magnesium 2.3 mg/dl (1.7-2.4) 06/20/25 19:42 Total Bilirubin 0.8 mg/dl (0.2-1.0) 06/20/25 19:42 AST 77 U/L (13-39) H 06/20/25 19:42 ALT 36 U/L (7-52) 06/20/25 19:42 Alkaline Phosphatase 158 U/L (34-104) H 06/20/25 19:42 Troponin I High Sens 23.6 pg/ml (0-14) H 06/20/25 19:42 Total Protein 7.9 gm/dl (6.0-8.3) 06/20/25 19:42 Albumin 3.4 gm/dl (3.4-5.0) 06/20/25 19:42 Globulin 4.5 gm/dl (2.5-4.0) H 06/20/25 19:42 Albumin/Globulin Ratio 0.8 (0.9-2) L 06/20/25 19:42 Lipase 8 U/L (11-82) L 06/20/25 19:42 Procalcitonin 3.80 ng/ml (0-0.5) H 06/20/25 19:42 Urine Color Yellow 06/20/25 22:53 Urine Appearance Clear (Clear) 06/20/25 22:53 Urine pH 6.0 (4.5-7.5) 06/20/25 22:53 Ur Specific [place] 1.023 (1.000-1.030) 06/20/25 22:53 Urine Protein 2+ (Negative) H 06/20/25 22:53 Urine Glucose (UA) Negative (Negative) 06/20/25 22:53 Urine Ketones Negative (Negative) 06/20/25 22:53 Urine Blood Negative (Negative) 06/20/25 22:53 Urine Nitrite Negative (Negative) 06/20/25 22:53 Urine Bilirubin Negative (Negative) 06/20/25 22:53 Urine Urobilinogen Negative (Negative) 06/20/25 22:53 Ur Leukocyte Esterase Negative (Negative) 06/20/25 22:53 Urine WBC (Auto) 0-5 /hpf (0-5) 06/20/25 22:53 Urine RBC (Auto) 0-2 /hpf (0-2) 06/20/25 22:53 U Hyaline Cast (Auto) 0-2 /lpf (0-2) 06/20/25 22:53 U Epithel Cells (Auto) 3-5 /hpf (0-2) H 06/20/25 22:53 Urine Bacteria (Auto) None Seen (None Seen) 06/20/25 22:53 Urine Mucus Present (None Prsent) A 06/20/25 22:53 Urine Comment 06/20/25 22:53 Impressions Chest X-Ray 06/20/25 20:10 Exam(s): XR CXR 1 VIEW EXAM: XR Chest, 1 View CLINICAL HISTORY: dizziness. TECHNIQUE: Frontal view of the chest. COMPARISON: No relevant prior studies available. FINDINGS: Heart is mildly enlarged. Ectatic aorta with atherosclerotic calcifications. Extensive left mid lung field and apical pleural- parenchymal thickening with air bronchograms within apical segment. No CHF. No pleural effusion or pneumothorax. Levoscoliosis. Diffuse osteopenia. IMPRESSION: Extensive predominantly left upper lobe consolidation with apical pleural parenchymal thickening. Considerations include a neoplasm, pneumonia or tuberculosis. Recommend comparison with prior studies if available. Electronically signed by: Bertram Wilks M.D. 06/20/25 22:34 PM Chest CTA 06/20/25 22:14 Exam(s): CTA CHEST With Contrast IV Amt: 119cc opt i320 EXAM: CT Angiography Chest With Intravenous Contrast CLINICAL HISTORY: pneumonia. TECHNIQUE: Axial computed tomographic angiography images of the chest with intravenous contrast. CTDI is 14.25 mGy and DLP is 216.5 mGy-cm. 3D and MIP reconstructed images were created and reviewed. CONTRAST: Patient received 119cc opt i320 of IV contrast COMPARISON: CXR 06-20-2025. FINDINGS: Pulmonary arteries: No pulmonary embolism. Aorta: No thoracic aortic aneurysm or dissection. Lungs: Emphysematous changes with subpleural blebs greatest in the right lung. Mild volume loss of the left lung. Redemonstrated dense consolidation throughout the left upper lobe, surrounding left hilar vessels with minimal aerated lung at the apex. Coarse interstitial changes within the left upper lobe with peribronchial thickening and probable honeycombing scarring. Scattered air bronchograms in the left upper lobe. Minimal bilateral dependent atelectasis. No suspicious mass or nodule in the remainder of the aerated lungs. Pleural space: No pleural effusion. No pneumothorax. Heart: No cardiomegaly. No pericardial effusion. No evidence of RV dysfunction. Bones/joints: Pectus deformity of the chest. No acute fracture. Mild diffuse levoscoliosis with associated degenerative changes. Soft tissues: Unremarkable. Lymph nodes: Mediastinal lymphadenopathy greatest in the left paratracheal region 11 x 17 mm, prevascular and in the AP window. IMPRESSION: No pulmonary embolism. Redemonstrated dense left upper lobe consolidation/pneumonia. Associated interstitial changes suggesting of a component of scarring/fibrosis. Associated mediastinal lymphadenopathy. An identifiable discrete mass is not visualized although can not be excluded. Possible volume loss in the left lung suggesting a component of atelectasis. Recommend follow-up to clearing. Emphysematous changes. Electronically signed by: Bertram Wilks M.D. 06/21/25 00:49 AM Code Status & VTE Plan Code Status Conditional code: Patient will except chest compressions, and defibrillation. She will also except pressors. Patient does not want to be intubated. She will however accept intubation if need be during and/or after bronchoscopy if performed. VTE Prophylaxis Plan VTE Prophylaxis will be ordered: Yes PG Care Time/CCT Total # of Minutes Spent Total Time Spent with Patient: Total time spent is greater than 50% in coordination of care (as documented) at patient's floor/unit and/or counseling patient: Coding Level of Care Code 92305 INT INP/OBS CARE 3/75MIN Diagnoses Sepsis due to pneumonia J18.9; A41.9 Elevated troponin R79.89 Hypokalemia E87.6 Dehydration, moderate E86.0
[2025-06-21] MEDS: Patient's HEIGHT &/or WEIGHT Needed STA (00:11)
[2025-06-21] MEDS: 4.5GM X1 IV STA (00:28)
[2025-06-21] MEDS: NSS + 20MEQ KCL 20 MEQ/1,000 ML BAG IV SCH (00:34)
--- NOTE | 2025-06-21 00:50 | CT Scan Report ---
Exam(s): CTA CHEST With Contrast IV Amt: 119cc opt i320 EXAM: CT Angiography Chest With Intravenous Contrast CLINICAL HISTORY: pneumonia. TECHNIQUE: Axial computed tomographic angiography images of the chest with intravenous contrast. CTDI is 14.25 mGy and DLP is 216.5 mGy-cm. 3D and MIP reconstructed images were created and reviewed. CONTRAST: Patient received 119cc opt i320 of IV contrast COMPARISON: CXR 06-20-2025. FINDINGS: Pulmonary arteries: No pulmonary embolism. Aorta: No thoracic aortic aneurysm or dissection. Lungs: Emphysematous changes with subpleural blebs greatest in the right lung. Mild volume loss of the left lung. Redemonstrated dense consolidation throughout the left upper lobe, surrounding left hilar vessels with minimal aerated lung at the apex. Coarse interstitial changes within the left upper lobe with peribronchial thickening and probable honeycombing scarring. Scattered air bronchograms in the left upper lobe. Minimal bilateral dependent atelectasis. No suspicious mass or nodule in the remainder of the aerated lungs. Pleural space: No pleural effusion. No pneumothorax. Heart: No cardiomegaly. No pericardial effusion. No evidence of RV dysfunction. Bones/joints: Pectus deformity of the chest. No acute fracture. Mild diffuse levoscoliosis with associated degenerative changes. Soft tissues: Unremarkable. Lymph nodes: Mediastinal lymphadenopathy greatest in the left paratracheal region 11 x 17 mm, prevascular and in the AP window. IMPRESSION: No pulmonary embolism. Redemonstrated dense left upper lobe consolidation/pneumonia. Associated interstitial changes suggesting of a component of scarring/fibrosis. Associated mediastinal lymphadenopathy. An identifiable discrete mass is not visualized although can not be excluded. Possible volume loss in the left lung suggesting a component of atelectasis. Recommend follow-up to clearing. Emphysematous changes. Electronically signed by: Bertram Wilks M.D. 06/21/25 00:49 AM
[2025-06-21] MEDS: VANCOMYCIN HCL 1,000 MG in SODIUM CHLORIDE 0.9% 500 ML IV ONE (01:19)
[2025-06-21] MEDS ORDERED: ACETAMINOPHEN 325 MG TAB PO PRN (01:48)
[2025-06-21] MEDS ORDERED: ONDANSETRON INJ 2 MG/ML 2 ML VIAL IV PRN (01:48)
[2025-06-21] MEDS: PIPERACILLIN/TAZOBACTAM 4.5 GM/100 ML BAG IV SCH (06:19)
[2025-06-21 07:09] LABS: Hematocrit (blood only) 32.1 % (37.0-47.0); Hemoglobin 11.1 g/dl (12.0-16.0); Immature Granulocytes # (auto) 0.22 K/uL (0.01-0.20); Immature Granulocytes % (auto) 1.2 %; Mean Corpuscular Hemoglobin 32.3 pg (25.0-34.0); Mean Corpuscular Volume 93.3 fL (80.0-100.0); Platelet Count 262 K/uL (130-400); Polychromasia 1+; RDW Standard Deviation 47.0 fL (36.4-46.3); Red Blood Count 3.44 M/uL (4.20-5.40); White Blood Count 18.41 K/ul (4.8-10.8)
[2025-06-21 07:14] LABS: Alanine Aminotransferase 34.0 U/L (7-52); Albumin Globulin Ratio 0.9 (0.9-2); Albumin Level 2.6 gm/dl (3.4-5.0); Alkaline Phosphatase 100.0 U/L (34-104); Anion Gap 8.0 (3-11); Bilirubin,Total 0.6 mg/dl (0.2-1.0); Blood Urea Nitrogen 31.0 mg/dl (6-23); Calcium 7.7 mg/dl (8.6-10.3); Carbon Dioxide 24.0 mmol/L (21-32); Chloride 98.0 mmol/L (98-107); Creatinine Clr Calc Pharmacy 66.1 ml/min; Globulin 2.9 gm/dl (2.5-4.0); Glucose 138.0 mg/dl (70-99(Fasting)); Magnesium 2.0 mg/dl (1.7-2.4); Potassium 3.4 mmol/L (3.5-5.1); Sodium 130.0 mmol/L (136-145); Total Protein 5.5 gm/dl (6.0-8.3)
[2025-06-21] MEDS: ALBUT/IPRATROP 3MG/0.5MG NEB 3 ML VIAL NEB SCH (07:15)
[2025-06-21] MEDS ORDERED: methylPREDNISolone 10 mg/mL (For Ped Dose < 7mg) IV SCH (09:00)
--- NOTE | 2025-06-21 10:17 | Pulmonary Consultation ---
Date of Consultation June 21, 2025 Assessment & Plan (1) Pneumonia: SHARI infiltrates, Leukocytosis, left-shift, and hyponatremia. The infiltrates are very dense and lobar in distribution. Cannot say that there is nothing in the airway to contribute to this lobar appearance, but I cannot see any obstructive lesions. No need for further systemic steroids, unless being used for other purposes. Ordered sputum and urine-Legionella. Would treat for 10 days, due to the burden of pulmonary infiltrates, but don't have to be all IV. She is, otherwise stable on room-air. OK to switch Augmentin and finish 5 days of Zithromax. Consider testing for qualification for home-Oxygen prior to discharge: Overnight Oximetry on room-air and Oximetry during ambulation. Chest imaging will have to be repeated on outpatient basis to ensure resolution, or to workup etiologies accordingly if no complete resolution. Laterality: left Lung location: upper lobe of lung Pneumonia type: due to unspecified organism Qualified Code(s): J18.9 - Pneumonia, unspecified organism (2) Tobacco use disorder: The patient has been a chronic smoker, and most recently she has been smoking around 1/4 pack per day. I discussed with the patient importance of smoking cessation. (3) Interstitial lung abnormality present on imaging study: I suspect that the suspicious interstitial changes are part of the pneumonic process. However, no previous imaging studies available. Again, chest imaging will have to be repeated on outpatient basis to ensure resolution, or to workup etiologies accordingly if no complete resolution. History of Present Illness Reason for Consultation: "SHARI post obstr pneumonia" Attending Physician: Nigel Julian History of Present Illness The patient is a very pleasant 69-year-old female who presented to the ED with complaints of dizziness and cough. She stated that her symptoms began with a nonproductive cough about a week prior, accompanied by intermittent fevers and chills, generalized fatigue, and malaise. She denied chest pain, significant shortness of breath, recent sick contacts, or recent travel. She also denied recent use of steroids, antibiotics, antipyretics, alcohol, or tobacco. She denied recent weight loss. She reported that two days into her illness, she developed a temperature of 100.5F, with intermittent fevers since then. Chest x-ray in the ED was suspicious for left upper lobe pneumonia. Her past medical history included alcohol and tobacco abuse, mood disorder, and HTN. At the time of the interview the patient reports that she feels significantly better than when she came in. She has no significant dyspnea at rest. She still has occasional productive cough, but she does not expectorate the sputum. I recommended that she provide a specimen if possible, so it can be submitted for culture. The patient has been a chronic smoker, and most recently she has been smoking around 1/4 pack per day. I discussed with the patient importance of smoking cessation. Allergies Allergy/AdvReac Type Severity Reaction Status Date / Time No Known Allergies Allergy Verified 06/20/25 21:28 Home Medications Medication Instructions Recorded Confirmed Type No Known Home Medications 10/19/19 06/20/25 History Patient History Medical History (Updated 06/21/25 @ 16:48 by Jose Antonio Kirkpatrick MD) No pertinent past medical history Family History Other No pertinent family history in first degree relatives Social History Smoking Status: Current every day smoker Tobacco Type: Cigarettes Cigarettes Per Day: 1/2 pack per day; Hx Alcohol Use: No Hx Substance Use: No Preferred Language: Amharic Communication Ability: Effective Job Honer Required: No Beliefs That Will Affect Care: None Current Living Situation: Spouse Feels Safe at Home: Yes Assistive Devices: None Review of Systems Review of Systems: All systems reviewed & are unremarkable except as noted in HPI & below Physical Exam Physical Exam: Vitals and labs reviewed. General: In no acute distress, breathing room-air. Skin: Warm and dry to touch. Noobvious lesions. Eyes: Anicteric.Noconjunctivitis.No periorbital edema. ENT: No oral thrush. No oropharyngeal erythema or exudates. Torus palatinus. Mallampati 2 (Uvula can be seen). Neck: No palpable masses or adenopathy. Respiratory: Pectus excavatum. Diffusely decreased breath sounds, no wheezing. [id number] inspiratory crackles anteriorly, with E-A changes posteriorly. No use of accessory muscles and no prolonged exhalation. Cardiac: Regular rhythm, no murmurs, no gallops, no rubs; could not appreciate JV pulse elevation. GI: Soft, nontender,. Extremities: No clubbing,no cyanosis,no edema. Neuro: No gross motor deficits. Seems appropriate. Results & Data Results & Data Vital Signs (Past 12 Hours) Vital Signs Temp Pulse Pulse Resp BP BP Pulse Ox 06/21/25 08:04 36.3 C L 71 18 97/64 L 97 06/21/25 07:15 70 20 90 06/21/25 03:57 36.6 C 66 16 107/75 98 06/21/25 01:55 06/21/25 01:49 36.6 C 73 18 105/68 95 06/21/25 01:14 36.9 C 73 24 118/62 93 06/21/25 00:59 75 06/21/25 00:42 36.9 C 72 24 95/61 L 93 06/20/25 23:14 96 O2 Del Method O2 Flow Rate 06/21/25 08:04 Nasal Cannula 2 06/21/25 07:15 Room Air 06/21/25 03:57 Nasal Cannula 5 06/21/25 01:55 Nasal Cannula 2 06/21/25 01:49 Nasal Cannula 2 06/21/25 01:14 Nasal Cannula 2 06/21/25 00:59 06/21/25 00:42 Nasal Cannula 06/20/25 23:14 Nasal Cannula 2 Laboratory Results 06/20/25 21:16 Aerobic Blood Culture - Pending Blood Anaerobic Blood Culture - Pending 06/20/25 21:26 Aerobic Blood Culture - Pending Blood Anaerobic Blood Culture - Pending 06/21/25 06/20/25 06/20/25 05:45 22:53 21:16 WBC 18.41 H RBC 3.44 L Hgb 11.1 L D Hct 32.1 L MCV 93.3 MCH 32.3 MCHC 34.6 RDW Std Deviation 47.0 H RDW Coeff of Nicole 13.9 Plt Count 262 MPV 9.8 Immature Gran % (Auto) 1.2 Neut % (Auto) 92.7 Lymph % (Auto) 3.0 Converse % (Auto) 2.6 Eos % (Auto) 0.1 Baso % (Auto) 0.4 Neut # (Auto) 17.09 H Lymph # (Auto) 0.55 L Converse # (Auto) 0.47 Eos # (Auto) 0.01 Baso # (Auto) 0.07 Immature Gran # (Auto) 0.22 H Toxic Vacuolation Dohle Bodies Polychromasia 1+ Sodium 130 L Potassium 3.4 L Chloride 98 Carbon Dioxide 24 Anion Gap 8 BUN 31 H Creatinine 0.61 Est Cr Clr Drug Dosing 66.1 eGFR 97.93 BUN/Creatinine Ratio 50.8 H Glucose 138 H Lactate 1.7 Calcium 7.7 L Magnesium 2.0 Total Bilirubin 0.6 AST 88 H ALT 34 Alkaline Phosphatase 100 Troponin I High Sens 13.9 D Total Protein 5.5 L D Albumin 2.6 L Globulin 2.9 Albumin/Globulin Ratio 0.9 Lipase Procalcitonin Urine Color Yellow Urine Appearance Clear Urine pH 6.0 Ur Specific Roscoe 1.023 Urine Protein 2+ H Urine Glucose (UA) Negative Urine Ketones Negative Urine Blood Negative Urine Nitrite Negative Urine Bilirubin Negative Urine Urobilinogen Negative Ur Leukocyte Esterase Negative Urine WBC (Auto) 0-5 Urine RBC (Auto) 0-2 U Hyaline Cast (Auto) 0-2 U Epithel Cells (Auto) 3-5 H Urine Bacteria (Auto) None Seen Urine Mucus Present A Urine Comment 06/20/25 19:42 WBC 20.10 H RBC 4.39 Hgb 14.2 Hct 40.3 MCV 91.8 MCH 32.3 MCHC 35.2 RDW Std Deviation 45.6 RDW Coeff of Nicole 13.5 Plt Count 341 MPV 9.5 Immature Gran % (Auto) 1.0 Neut % (Auto) 93.3 Lymph % (Auto) 2.8 Converse % (Auto) 2.3 Eos % (Auto) 0.0 Baso % (Auto) 0.6 Neut # (Auto) 18.74 H Lymph # (Auto) 0.57 L Converse # (Auto) 0.46 Eos # (Auto) 0.00 Baso # (Auto) 0.12 Immature Gran # (Auto) 0.21 H Toxic Vacuolation 1+ Dohle Bodies 1+ Polychromasia Sodium 128 L Potassium 3.2 L Chloride 91 L Carbon Dioxide 26 Anion Gap 11 BUN 36 H Creatinine 0.71 Est Cr Clr Drug Dosing Not Reportable eGFR 93.13 BUN/Creatinine Ratio 50.7 H Glucose 129 H Lactate Calcium 9.6 Magnesium 2.3 Total Bilirubin 0.8 AST 77 H ALT 36 Alkaline Phosphatase 158 H Troponin I High Sens 23.6 H Total Protein 7.9 Albumin 3.4 Globulin 4.5 H Albumin/Globulin Ratio 0.8 L Lipase 8 L Procalcitonin 3.80 H Urine Color Urine Appearance Urine pH Ur Specific Roscoe Urine Protein Urine Glucose (UA) Urine Ketones Urine Blood Urine Nitrite Urine Bilirubin Urine Urobilinogen Ur Leukocyte Esterase Urine WBC (Auto) Urine RBC (Auto) U Hyaline Cast (Auto) U Epithel Cells (Auto) Urine Bacteria (Auto) Urine Mucus Urine Comment Diagnostic Findings Chest X-Ray 06/20/25 20:10 Exam(s): XR CXR 1 VIEW EXAM: XR Chest, 1 View CLINICAL HISTORY: dizziness. TECHNIQUE: Frontal view of the chest. COMPARISON: No relevant prior studies available. FINDINGS: Heart is mildly enlarged. Ectatic aorta with atherosclerotic calcifications. Extensive left mid lung field and apical pleural- parenchymal thickening with air bronchograms within apical segment. No CHF. No pleural effusion or pneumothorax. Levoscoliosis. Diffuse osteopenia. IMPRESSION: Extensive predominantly left upper lobe consolidation with apical pleural parenchymal thickening. Considerations include a neoplasm, pneumonia or tuberculosis. Recommend comparison with prior studies if available. Electronically signed by: Bertram Wilks M.D. 06/20/25 22:34 PM Chest CTA 06/20/25 22:14 Exam(s): CTA CHEST With Contrast IV Amt: 119cc opt i320 EXAM: CT Angiography Chest With Intravenous Contrast CLINICAL HISTORY: pneumonia. TECHNIQUE: Axial computed tomographic angiography images of the chest with intravenous contrast. CTDI is 14.25 mGy and DLP is 216.5 mGy-cm. 3D and MIP reconstructed images were created and reviewed. CONTRAST: Patient received 119cc opt i320 of IV contrast COMPARISON: CXR 06-20-2025. FINDINGS: Pulmonary arteries: No pulmonary embolism. Aorta: No thoracic aortic aneurysm or dissection. Lungs: Emphysematous changes with subpleural blebs greatest in the right lung. Mild volume loss of the left lung. Redemonstrated dense consolidation throughout the left upper lobe, surrounding left hilar vessels with minimal aerated lung at the apex. Coarse interstitial changes within the left upper lobe with peribronchial thickening and probable honeycombing scarring. Scattered air bronchograms in the left upper lobe. Minimal bilateral dependent atelectasis. No suspicious mass or nodule in the remainder of the aerated lungs. Pleural space: No pleural effusion. No pneumothorax. Heart: No cardiomegaly. No pericardial effusion. No evidence of RV dysfunction. Bones/joints: Pectus deformity of the chest. No acute fracture. Mild diffuse levoscoliosis with associated degenerative changes. Soft tissues: Unremarkable. Lymph nodes: Mediastinal lymphadenopathy greatest in the left paratracheal region 11 x 17 mm, prevascular and in the AP window. IMPRESSION: No pulmonary embolism. Redemonstrated dense left upper lobe consolidation/pneumonia. Associated interstitial changes suggesting of a component of scarring/fibrosis. Associated mediastinal lymphadenopathy. An identifiable discrete mass is not visualized although can not be excluded. Possible volume loss in the left lung suggesting a component of atelectasis. Recommend follow-up to clearing. Emphysematous changes. Electronically signed by: Bertram Wilks M.D. 06/21/25 00:49 AM Medications Administered Home Medications Medication Instructions Recorded Confirmed Last Taken No Known Home Medications 10/19/19 06/20/25 Unknown Active Medications Generic Name Dose Route Start Last Admin Trade Name Freq PRN Reason Stop Dose Admin Albuterol 3 ml 06/21/25 07:00 06/21/25 07:15 Albut/Ipratrop 3mg/0.5mg Neb 3 Ml Vial NEB 07/21/25 06:59 3 ml QIDR GILLIAN Administration Protocol Piperacillin Sod/Tazobactam Sod 4.5 gm in 100 mls @ 25 mls/hr 06/21/25 06:00 06/21/25 06:19 Zosyn IV 06/28/25 05:59 25 mls/hr Q8H GILLIAN Administration Protocol Potassium Chloride/Sodium Chloride 20 meq in 1,000 mls @ 100 mls/hr 06/20/25 23:45 06/21/25 09:32 Normal Saline W/20 Meq Kcl IV 06/21/25 19:44 100 mls/hr .Q10H GILLIAN Administration Methylprednisolone 40 mg/ 0.64 mls @ 1.5 mls/min 06/21/25 09:00 06/21/25 09:32 Syringe IV 07/21/25 08:59 1.5 mls/min Q12H GILLIAN Administration PG Care Time/CCT Total # of Minutes Spent Total Time Spent with Patient: Total time spent is greater than 50% in coordination of care (as documented) at patient's floor/unit and/or counseling patient: 65 minutes Coding Level of Care Code 94593 IN/OBS CONSULT LVL 4,60M Diagnoses Pneumonia of left upper lobe due to infectious organism J18.9 Laterality: left Lung location: upper lobe of lung Pneumonia type: due to unspecified organism Tobacco use disorder F17.200 Interstitial lung abnormality present on imaging study R91.8 Time Spent (min) 65 Comment Review chart/ imaging studies, history/ physical, update patient, family, nurse, provider.
--- NOTE | 2025-06-21 10:21 | Pharmacy Report ---
Pharmacy PK ABX Note - Date of Service June 21, 2025 - Assessment and Plan Assessment 69 year old F receiving vancomycin and zosyn for possible pneumonia. PMHx significant for alcohol/tobacco abuse, htn, suicidal ideation. Presenting to ER with complaint of 2 weeks of chills, cough/fatigue. CXR positive for consolidation. Blood cultures and MRSA nasal swab ordered. Plan Vancomycin * Loading dose: 1000 mg IV x 1 * Maintenance dose: 750 mg IV every 12 hours * Regimen is predicted to achieve target AUC/MIGUE of 400-600 mg/L.hr * Random level ordered tomorrow AM to assess dosing Pharmacy will continue to follow and will adjust dose/frequency as necessary. Thank you. Pharmacy has transitioned to AUC monitoring for vancomycin. AUC/MIGUE is the preferred PK/PD target and is associated with decreased risk of nephrotoxicity compared to traditional trough targets.
[2025-06-21] MEDS: VANCOMYCIN 750 MG in SODIUM CHLORIDE 0.9% 250 ML IV SCH (11:09)
--- NOTE | 2025-06-21 12:27 | Electrocardiogram Report ---
Test Reason : Blood Pressure : */* mmHG Vent. Rate : 75 BPM Atrial Rate : 75 BPM P-R Int : 158 ms QRS Dur : 66 ms QT Int : 376 ms P-R-T Axes : 63 104 91 degrees QTcB Int : 419 ms Normal sinus rhythm Rightward axis Low voltage QRS Septal infarct , age undetermined Abnormal ECG No previous ECGs available Confirmed by Melo Núñez ([id number]) on 06/21/2025 12:27:07 PM Referred By: REFERRED SELF Confirmed By: Melo Núñez
[2025-06-21 23:00] VITALS: RESP 16
[2025-06-22 03:41] VITALS: TEMP 97.7; O2SAT 92
[2025-06-22 06:10] LABS: Hematocrit (blood only) 28.5 % (37.0-47.0); Hemoglobin 10.3 g/dl (12.0-16.0); Immature Granulocytes # (auto) 0.27 K/uL (0.01-0.20); Immature Granulocytes % (auto) 1.6 %; Mean Corpuscular Hemoglobin 33.8 pg (25.0-34.0); Mean Corpuscular Volume 93.4 fL (80.0-100.0); Platelet Count 261 K/uL (130-400); RDW Standard Deviation 44.9 fL (36.4-46.3); Red Blood Count 3.05 M/uL (4.20-5.40); White Blood Count 16.70 K/ul (4.8-10.8)
[2025-06-22 06:28] LABS: Alanine Aminotransferase 97.0 U/L (7-52); Albumin Globulin Ratio 0.9 (0.9-2); Albumin Level 2.5 gm/dl (3.4-5.0); Alkaline Phosphatase 122.0 U/L (34-104); Anion Gap 6.0 (3-11); Bilirubin,Total 0.4 mg/dl (0.2-1.0); Blood Urea Nitrogen 21.0 mg/dl (6-23); Calcium 8.2 mg/dl (8.6-10.3); Carbon Dioxide 24.0 mmol/L (21-32); Chloride 103.0 mmol/L (98-107); Creatinine Clr Calc Pharmacy 87.3 ml/min; Globulin 2.8 gm/dl (2.5-4.0); Glucose 174.0 mg/dl (70-99(Fasting)); Magnesium 1.9 mg/dl (1.7-2.4); Potassium 3.4 mmol/L (3.5-5.1); Sodium 133.0 mmol/L (136-145); Total Protein 5.3 gm/dl (6.0-8.3)
--- NOTE | 2025-06-22 08:18 | Hospitalist Progress Note ---
Date of Service June 22, 2025 Assessment & Plan (1) Community acquired bacterial pneumonia: (2) Interstitial lung abnormality present on imaging study: (3) Tobacco use disorder: (4) Sepsis due to pneumonia: (5) Mood disorder: (6) Transaminasemia: (7) Alcohol use disorder, mild, abuse: Plan In summary this is a 69-year-old female who was admitted to [facility] on 06/21 due to sepsis in the setting of community-acquired pneumonia. #Sepsis secondary to CAP without hypoxia // Nicotine use disorder with dependence, complicated by panlobular pulmonary emphysema #Transaminasemia i/s/o alcohol use disorder Admission and Anticipated Discharge Date Admission Date: June 21, 2025 Subjective Ms. Hwang is a 69-year-old female who is active medical conditions include panlobular emphysema in the setting of nicotine dependence with continued use, alcohol use disorder among other chronic medical conditions who presented to the [facility] on 06/20 due to progressive weakness and lethargy subsequently admitted for sepsis in the setting of community-acquired pneumonia. Results & Data Results & Data Vital Signs (Past 12 Hours) Vital Signs Temp Pulse Pulse Resp BP Pulse Ox O2 Del Method 06/22/25 03:40 36.5 C 85 16 134/85 92 Room Air 06/21/25 22:58 36.6 C 85 16 124/76 93 Room Air 06/21/25 21:57 84 Laboratory Results Leukocytosis of 16.7, hemoglobin 10; ALT 97, AST 225, total protein 5.3, albumin 2.5 Diagnostic Findings CTA chest revealed emphysematous lung changes with interstitial fibrosis/inflammation; there is also a left upper lobe consolidation that was previously seen on a chest film obtained in the emergency department PG Care Time/CCT Total # of Minutes Spent Total Time Spent with Patient: Total time spent is greater than 50% in coordination of care (as documented) at patient's floor/unit and/or counseling patient: Coding Diagnoses Community acquired bacterial pneumonia J15.9 Interstitial lung abnormality present on imaging study R91.8 Tobacco use disorder F17.200 Sepsis due to pneumonia J18.9; A41.9 Mood disorder F39 Transaminasemia R74.01 Alcohol use disorder, mild, abuse F10.10
[2025-06-22] MEDS ORDERED: ALBUTEROL 0.083% NEBU SOLN 3 ML VIAL NEB PRN (08:42)
[2025-06-22 09:28] VITALS: BP 149/88
[2025-06-22] MEDS: ALBUT/IPRATROP 3MG/0.5MG NEB 3 ML VIAL NEB SCH ×2 (09:40→14:06)
[2025-06-22 14:08] VITALS: PULSE 78
--- NOTE | 2025-06-22 15:55 | Discharge Summary ---
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 Patient initially presented with sepsis associated with a community-acquired pneumonia; their sepsis rapidly resolved with appropriate interventions; there are associated symptoms of productive cough, general malaise, fatigue have improved with antibiotic interventions; they will continue in the outpatient setting with Augmentin, no further steroid intervention is necessary per pulmonology recommendations; they recommend outpatient reassessment with CT chest with contrast to be performed in approximately 8 to 10 weeks for further evaluation of visualized left upper lobe consolidation. Start Augmentin 875/125 mg p.o. twice daily through 06/30 Recommended to follow with primary care physician for reevaluation of pulmonary consolidation and imaging to be ordered The patient was found to have elevated transaminases during her hospitalization without associated symptomatology; suspect that this is likely consequential of a mild hepatic injury with previous injury from alcohol misuse; reassessment of hepatic function has been ordered to be obtained on 06/26 and follow-up with their primary care physician Finally, the patient was noted to have 2 separate isolated episodes of transient atrial fibrillation of which they were asymptomatic; a Holter monitor has been ordered for discharge for further evaluation and interpretation to determine the true burden of atrial fibrillation Admission HPI Per Admitting Provider The patient is a 69-year-old female with past medical history including alcohol and tobacco abuse, mood disorder, elevated blood pressure reading with diagnosis of hypertension, and suicidal ideation. She denies any recent use of alcohol or tobacco, and has no suicidal ideation. The patient presents to the emergency department with family, with complaint of 2 weeks of chills, cough, fatigue, generalized aches, feeling very dehydrated, decreased oral intake for foods, and intermittent dizziness. She denies any recent travels or sick exposures. She reports that 2 days into her symptoms, she initially developed a temperature of 100.5, and has had intermittent temperatures since that time. She denies any recent weight loss. While in the emergency department, she underwent chest x- ray which showed a significant left upper lobe pneumonia. She was given Tylenol 1 g IV, normal saline 1 L IV, ceftriaxone 2 g IV, and azithromycin 5 mg p.o. by the ED, and then [facility] Discharge Exam General: Adult female in no acute distress Vital Signs: Reviewed HEENT: Moist mucous membranes; pupils equally round react to light, extraocular motion intact Pulmonary: Symmetrically unrestricted chest wall excursion; diminished air movement in the posterior apical lobe, otherwise lungs are clear to auscultation Cardiovascular: Regular rate and rhythm without murmurs, rubs, or gallops; bilateral radial pulse 2+, no notable lower extremity edema Gastrointestinal: Soft, nondistended; no palpable abnormalities throughout the entire abdomen; bowel sounds with normal frequency and pitch throughout Neurologic: Cranial nerves II through XII grossly intact; no discernible focal weakness nor paresthesias Discharge Plan Discharge Items Patient Disposition: Home - Self-Care Reason For Visit: PNEUMONIA, GENERALIZED WEAKNESS Discharge Diagnosis: Community Acquired Pneumonia // Transient atrial fibrillation Condition on Discharge: Good Activity: Per Instructions section Non-emergency contact: Primary Care Provider Call non-emergency contact if: you have any medication questions and your symptoms worsen Follow-up/Referrals: Humble Sellers MD [Primary Care Provider] - 06/27/25 2:00 pm Yuliet Romero MD [Physician] - 06/28/25 1:00 pm (Pt wants follow up scheduled with Dr. Romero) Diet: Regular Fluids: 2000ml (8 cups) Ambulatory Orders: CT chest diagnostic wo/w con (Routine) Timeframe: 8 Weeks Location: Determined by Patient Ordered By: Cuba Boudreaux Hepatic Function (Liver) Panel (Routine) Timeframe: 20250627 Location: Determined by Patient Ordered By: Cuba Boudreaux ECG holter monitor scan (Routine) Timeframe: 7 Days Location: Determined by Patient Ordered By: Cuba Boudreaux Addtl Attending Provider Instructions: You were admitted to [facility] for sepsis associated with community-acquired pneumonia which is now resolved. With regard to your pneumonia, you will continue for a full 10-day course of antibiotics. Repeat imaging of your chest will be ordered to be completed in approximately 8 to 10 weeks. During your hospitalization you were found to have transient, asymptomatic episodes of atrial fibrillation associated with breathing treatments, which can be associated with precipitating arrhythmias. For this reason, a ambulatory quality assurance monitor chassis has been ordered at discharge, please follow-up with form raiser who interprets this if there are concerning findings. You were noted to have a transient rise in your liver function, likely consequential of your associated infection. Repeat laboratory testing has been ordered to be completed on or around 06/27. Thank you for choosing [facility] as your healthcare provider. Pending Studies at Discharge: No Stand-Alone Forms: My [facility], Smoking Cessation Medications and DC Order Prescriptions: New amoxicillin-pot clavulanate 875-125 mg tablet 1 tab PO Q12H 7 Days Qty: 14 0RF nystatin 100,000 unit/mL suspension 1 ml PO QID 14 Days Qty: 56 0RF Rx Instructions: swish and swallow Discharge Orders: Discharge Order (Routine); Ordered 06/22/25 Ordered By: Cuba Boudreaux Admission Data Admit Date/Time: 06/21/25 00:09 Attending Provider: Cuba Boudreaux Admit Provider: Alban Ibanez Primary Care Provider: Humble Sellers Other Providers: Alban Ibanez; Jose Antonio Kirkpatrick Other Interventions: Discharge Summary Assessment (RN) Last Done: 06/22/25 10:29 Hospital Stay Data Consultations 06/20/25 21:56 ED Decision to Admit Stat 06/21/25 01:48 Consult Pulmonology Routine Diagnostic Imagining Performed 06/20/25 22:14 CTA chest w con [CT angio chest w con] Stat Pending Results Patient Have Any Pending Studies at Discharge: No Discharge Instructions Given to Patient (Per Discharging Provider) You were admitted to [facility] for sepsis associated with community-acquired pneumonia which is now resolved. With regard to your pneumonia, you will continue for a full 10-day course of antibiotics. Repeat imaging of your chest will be ordered to be completed in approximately 8 to 10 weeks. During your hospitalization you were found to have transient, asymptomatic episodes of atrial fibrillation associated with breathing treatments, which can be associated with precipitating arrhythmias. For this reason, a ambulatory quality assurance monitor chassis has been ordered at discharge, please follow-up with form raiser who interprets this if there are concerning findings. You were noted to have a transient rise in your liver function, likely consequential of your associated infection. Repeat laboratory testing has been ordered to be completed on or around 06/27. Thank you for choosing [facility] as your healthcare provider. 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
== END 2025-06-22 16:35 | disposition home or self-care (01) | DRG 871 ==
LOC: ED 19:23 → 4W 06-21 00:09 → SUATTDRO 06-21 00:09 → 4W 06-21 01:14